=== PATIENT | male | born 1965 | race Caucasian/White ===

== ENCOUNTER 2021-06-06 10:46 | Outpatient (REF) | payer OTHER, SELFPAY ==
--- NOTE | ~2021-06-06 | XR_ITS ---
EXAMINATION: XR CHEST CLINICAL INFORMATION: Nonspecific abnormal finding of lung manzano. COMPARISON: Chest radiograph dated from 09/21/2006. TECHNIQUE: 2 views of the chest were obtained. FINDINGS: Normal appearance of the cardiomediastinal silhouette. Mild peribronchial cuffing centrally and in the lower lungs. No focal airspace opacities. No pleural effusions or pneumothorax. No acute osseous abnormalities. Thoracic spondylosis. XR/XR chest 2V IMPRESSION: Mild bronchial wall thickening with can be seen with small airways process such as asthma or atypical/viral infection.
[2021-06-06 13:45] LABS: MANUAL DIFF FLAG NO
[2021-06-06 13:48] LABS: Basophils Absolute Auto 0.1 X10*3/uL (0.0-0.2); Basophils Percent Auto 1.3 % (0-2); Eosinophils Absolute Auto 0.6 X10*3/uL (0.0-0.4); Eosinophils Percent Auto 8.4 % (0-4); Hematocrit 46.9 % (42.0-52.0); Hemoglobin 16.2 g/dl (14.0-18.0); Imm Gran Abs Auto 0.02 X10*3/uL (0.00-0.03); Imm Gran Pct Auto 0.3 % (0.0-0.4); Lymphocytes Absolute Auto 2.7 X10*3/uL (1.2-4.9); Lymphocytes Percent Auto 35.7 % (20-40); Mean Corpuscular HGB Conc 34.5 g/dl (31.0-36.0); Mean Corpuscular Hemoglobin 31.3 pg (27.0-33.0); Mean Corpuscular Volume 90.5 fL (80.0-98.0); Monocytes Absolute Auto 0.8 X10*3/uL (0.1-1.2); Monocytes Percent Auto 10.6 % (2-11); Neutrophils Absolute Auto 3.3 x10*3/uL (2.0-8.3); Neutrophils Percent Auto 43.7 % (45-73); Platelet Count 225 X10*3/uL (160-400); Red Blood Count 5.18 X10*6/uL (4.60-5.80); Red Cell Distribution Width 12.1 % (11.0-16.0); White Blood Count 7.5 X10*3/uL (4.8-10.8)
[2021-06-06 13:53] LABS: Appearance Urine CLEAR; Color Urine YELLOW; Glucose Urine UA NEG (NEG); Leukocyte Esterase Urine NEG (NEG); Nitrite Urine NEG (NEG); Specific Gravity - Urine 1.025 (1.005-1.025); UACC Culture Trigger NO; Urine Blood 1+ (NEG); Urine Ketones NEG (NEG); Urine Protein NEG (NEG-TRACE)
[2021-06-06 14:00] LABS: Estimated Average Glucose 117 mg/dL; Hemoglobin A1c % 5.7 %
[2021-06-06 14:08] LABS: Alanine Aminotransferase 47 U/L (0-40); Albumin Level 4.3 g/dL (3.5-5.0); Alkaline Phosphatase 54 U/L (39-117); Anion Gap 11 (12-20); Aspartate Amino Transferase 33 U/L (5-37); Bilirubin Total 1.8 mg/dL (0.0-1.0); Blood Urea Nitrogen 21 mg/dL (9-16); Calcium 9.4 mg/dL (8.4-10.2); Carbon Dioxide 31 mmol/L (22-29); Chloride 103 mmol/L (96-108); Cholesterol 138 mg/dL; Estimated Glomerular Filt Rate > 60; Glucose Fasting 107 mg/dL (60-99); HDL Cholesterol 45 mg/dL; LDL Cholesterol Calculated 71 mg/dl; Potassium 3.9 mmol/L (3.3-5.1); Sodium 141 mmol/L (135-145); Total Protein 7.4 g/dL (6.5-8.0); Triglycerides 110 mg/dL
[2021-06-06 14:20] LABS: Prostate Specific Antigen 1.19 ng/mL (<0.05-4.0); TSH reflex Free T4 2.62 uIU/mL (0.32-4.0); Vitamin D 25-OH Total 14.8 ng/mL (>30)
[2021-06-06 14:21] LABS: Mucus Urine TRACE /LPF; RBC Urine 0-2 /HPF (0); Squamous Epithelial Cell Urine TRACE /LPF; WBC Urine 0 /HPF (0-4)
== END 2021-06-06 10:47 | disposition home or self-care (01) ==
LOC: HO.HMGCX 10:46
PROVIDERS: PCP Internal Medicine; Visit Provider Internal Medicine
DX: Z00.00 Encounter for general adult medical examination without abnormal findings (principal); I10 Essential (primary) hypertension; E78.00 Pure hypercholesterolemia, unspecified; N40.0 Benign prostatic hyperplasia without lower urinary tract symptoms; E55.9 Vitamin D deficiency, unspecified; R73.01 Impaired fasting glucose; R91.8 Other nonspecific abnormal finding of lung field; Z12.5 Encounter for screening for malignant neoplasm of prostate
CPT/HCPCS: 36415; 71046; 80053; 80061; 81001; 81003; 82306; 83036; 84153; 84443; 85025

== ENCOUNTER → 2022-05-22 09:57 | Outpatient (BNVA) | payer OTHER, SELFPAY | PROVIDERS: PCP Internal Medicine; Visit Provider Nurse Practitioner Family | DX: N40.0 Benign prostatic hyperplasia without lower urinary tract symptoms (principal) | CPT/HCPCS: 51798 ==

== ENCOUNTER 2022-06-18 10:53 | Outpatient (REF) | payer OTHER, SELFPAY ==
--- NOTE | ~2022-06-18 | US_ITS ---
EXAMINATION: US PELVIS LIMITED (BLADDER) CLINICAL INFORMATION: Benign prostatic hyperplasia without lower urinary tract symptoms. COMPARISON: Ultrasound kidneys and bladder 10/09/2008. TECHNIQUE: Real-time imaging of the bladder. FINDINGS: BLADDER: Well distended and normal. Bilateral ureteral jets are demonstrated. Prevoid bladder volume is 176 mL. Postvoid bladder volume is 64.0 mL. Prostate volume 36.0 mL. US/US bladder IMPRESSION: Moderate postvoid residual volume. Bilateral ureteral jets seen. Mild prostate enlargement.
== END 2022-06-18 10:54 | disposition home or self-care (01) ==
LOC: HO.US 10:53
PROVIDERS: Visit Provider Nurse Practitioner Family
DX: N40.0 Benign prostatic hyperplasia without lower urinary tract symptoms (principal)
CPT/HCPCS: 76857

== ENCOUNTER 2022-07-04 10:53 | Outpatient (REF) | payer OTHER, SELFPAY ==
[2022-07-04 11:02] LABS: MANUAL DIFF FLAG NO
[2022-07-04 11:47] LABS: Basophils Percent Auto 0.6 % (0-2); Eosinophils Absolute Auto 0.2 X10*3/uL (0.0-0.4); Eosinophils Percent Auto 3.3 % (0-4); Hematocrit 44.8 % (42.0-52.0); Hemoglobin 15.5 g/dl (14.0-18.0); Imm Gran Abs Auto 0.01 X10*3/uL (0.00-0.03); Imm Gran Pct Auto 0.1 % (0.0-0.4); Lymphocytes Absolute Auto 2.8 X10*3/uL (1.2-4.9); Lymphocytes Percent Auto 41.9 % (20-40); Mean Corpuscular HGB Conc 34.6 g/dl (31.0-36.0); Mean Corpuscular Hemoglobin 30.6 pg (27.0-33.0); Mean Corpuscular Volume 88.5 fL (80.0-98.0); Mean Platelet Volume 10.2 fL (9.4-12.4); Monocytes Absolute Auto 0.7 X10*3/uL (0.1-1.2); Monocytes Percent Auto 10.4 % (2-11); Neutrophils Absolute Auto 2.9 x10*3/uL (2.0-8.3); Neutrophils Percent Auto 43.7 % (45-73); Platelet Count 203 X10*3/uL (160-400); Red Blood Count 5.06 X10*6/uL (4.60-5.80); Red Cell Distribution Width 11.7 % (11.0-16.0); White Blood Count 6.7 X10*3/uL (4.8-10.8)
[2022-07-04 11:51] LABS: Appearance Urine Clear; Color Urine Yellow; Glucose Urine UA Negative (Negative); Leukocyte Esterase Urine Negative (Negative); Nitrite Urine Negative (Negative); PH 5.5 (5.0-9.0); Specific Gravity - Urine 1.025 (1.005-1.025); Urine Blood Negative (Negative); Urine Ketones Negative (Negative); Urine Protein Negative (Neg-Trace)
[2022-07-04 11:53] LABS: Estimated Average Glucose 114 mg/dL; Hemoglobin A1c % 5.6 %
[2022-07-04 12:15] LABS: Alanine Aminotransferase 87 U/L (0-40); Albumin Level 4.4 g/dL (3.5-5.0); Alkaline Phosphatase 49 U/L (39-117); Anion Gap 12 (12-20); Aspartate Amino Transferase 43 U/L (5-37); Bilirubin Total 2.3 mg/dL (0.0-1.0); Blood Urea Nitrogen 18 mg/dL (9-16); Calcium 9.2 mg/dL (8.4-10.2); Carbon Dioxide 28 mmol/L (22-29); Chloride 106 mmol/L (96-108); Cholesterol 111 mg/dL; Estimated Glomerular Filt Rate > 60; Glucose Fasting 103 mg/dL (60-99); HDL Cholesterol 42 mg/dL; LDL Cholesterol Calculated 52 mg/dl; Potassium 3.6 mmol/L (3.3-5.1); Sodium 142 mmol/L (135-145); Total Protein 6.8 g/dL (6.5-8.0); Triglycerides 88 mg/dL
[2022-07-04 12:41] LABS: Prostate Specific Antigen 1.44 ng/mL (<0.05-4.0); TSH reflex Free T4 3.56 uIU/mL (0.32-4.0); Vitamin D 25-OH Total 21.4 ng/mL (>30)
== END 2022-07-04 10:54 | disposition home or self-care (01) ==
LOC: HO.LAB 10:53
PROVIDERS: PCP Internal Medicine; Visit Provider Internal Medicine
DX: I10 Essential (primary) hypertension (principal); N40.0 Benign prostatic hyperplasia without lower urinary tract symptoms; R35.0 Frequency of micturition; E55.9 Vitamin D deficiency, unspecified; E78.00 Pure hypercholesterolemia, unspecified; R73.01 Impaired fasting glucose; Z12.5 Encounter for screening for malignant neoplasm of prostate
CPT/HCPCS: 36415; 80053; 80061; 81003; 82306; 83036; 84153; 84443; 85025

== ENCOUNTER 2022-07-17 10:05 | Outpatient (REF) | payer OTHER, SELFPAY ==
--- NOTE | ~2022-07-17 | US_ITS ---
EXAMINATION: US ABDOMEN COMPLETE CLINICAL INFORMATION: Other specified abnormal findings of blood chemistry. COMPARISON: US pelvis limited (bladder) 06/18/2022. TECHNIQUE: Real-time imaging of the abdominal viscera. FINDINGS: PANCREAS: Normal. ABDOMINAL AORTA: The proximal, mid, and distal segments are normal in caliber. INFERIOR VENA CAVA: Visualized portions are normal. LIVER: The liver is normal in size. The liver contour is normal. Echogenicity of the liver is diffusely increased. No focal hepatic lesion. There is no intrahepatic biliary duct dilatation seen. GALLBLADDER: Surgically absent. COMMON BILE DUCT: Normal in caliber measuring 0.4 cm in diameter. RIGHT KIDNEY: The kidney measures 11.8 cm in maximum dimension. There is mild fullness of the right-sided collecting system versus small parapelvic cysts. No renal calculi. LEFT KIDNEY: The kidney measures 11.8 cm in maximum dimension. A few parapelvic cysts are noted within the left kidney. No definitive hydronephrosis. No renal calculi. SPLEEN: Normal. The spleen measures 11.5 cm in maximum dimension. FREE FLUID: None. US/US abdomen complete IMPRESSION: 1. Diffusely increased liver echogenicity. This is a nonspecific finding but most suggestive of hepatic steatosis. Correlation with liver enzymes recommended.. 2. Suspected parapelvic cysts of the left kidney with fullness of the right-sided collecting system versus parapelvic cysts. CT urogram would be required to definitively distinguish between parapelvic cysts and fullness of the collecting system
== END 2022-07-17 10:06 | disposition home or self-care (01) ==
LOC: HO.HMGCX 10:05
PROVIDERS: PCP Internal Medicine; Visit Provider Internal Medicine
DX: R79.89 Other specified abnormal findings of blood chemistry (principal); E80.6 Other disorders of bilirubin metabolism
CPT/HCPCS: 76700

== ENCOUNTER → 2022-08-07 10:48 | Outpatient (BNVA) | payer OTHER, SELFPAY | PROVIDERS: PCP Internal Medicine; Visit Provider Nurse Practitioner Family | DX: N52.9 Male erectile dysfunction, unspecified (principal); N40.1 Benign prostatic hyperplasia with lower urinary tract symptoms; N13.8 Other obstructive and reflux uropathy | CPT/HCPCS: 51798 ==

== ENCOUNTER 2023-09-04 11:06 | Outpatient (AMB) | payer OTHER, SELFPAY ==
--- NOTE | 2023-09-04 11:11 | MHC.PC.OV ---
Vital Signs 09/04/23 11:16 Height 5 ft 6 in Weight 195 lb 6 oz BMI 31.5 BP 110/74 Blood Pressure Location Lt brachial Position Sitting Pulse 66 Pulse Source Pulse Oximeter Pulse Oximetry (%) 98 Oxygen Delivery Method Room Air Intake Visit Reasons: follow up Registration Coordinator Required: No Accompanied by: Self / Same As Patient Allergies No Known Allergies Allergy (Verified 09/04/23 11:45) Medication List - Last Reconciled 09/04/23 by Robert Garrett MD alfuzosin ER 10 mg PO BEDTIME 90 days amlodipine 5 mg PO DAILY 90 days aspirin 81 mg PO DAILY atorvastatin 80 mg PO DAILY 90 days hydrochlorothiazide 25 mg PO DAILY 90 days lisinopril 40 mg PO DAILY 90 days metoprolol succinate ER 200 mg PO DAILY 90 days Tobacco use date assessed: 09/04/23 Dental Screening Dental Screen Date: 09/04/23 Did you have a dental visit in the last 12 months?: Yes Did you have a dental problem in the last 6 months where you did not have access to dental care?: No Was dental information given to patient?: Patient has dentist HPI follow up HPI Details Patient comes in today for his follow up visit - was last seen over a year ago in June 2022 Patient states that he has been experiencing increased pain over his lower back lately He also has a recurrent itchy rash on a couple of his fingers on the left hand recentlly - has been applying some apple cider vinegar over the rash but has noted only only some temporary relief of his symptoms He denies any headaches or dizziness Denies any chest pains, no SOB No nausea/vomiting, no abdominal pain No change in bowel habits noted Needs a couple of his Rx refilled He has not had any follow up labs done in over a year [facility] Medical History Impaired fasting glucose Obesity (BMI 30-39.9) Allergic rhinitis Erectile dysfunction Hemorrhoids Benign prostatic hyperplasia Pulmonary nodules Pure hypercholesterolemia Benign essential hypertension Premature ventricular contractions Hypertension Hyperlipidemia Coronary artery disease Surgical History History of coronary artery stent placement Family History Father Lung cancer Mother Hypertension Social History Housing: House Alcohol intake: current Alcohol intake frequency: a few times a week Alcohol type: beer Patient Tobacco Use Status: Former Tobacco user e-Cigarette/Vaping Use: Never Used Second Hand Smoke Exposure: Yes service: No Current occupational status: employed Cognitive needs: No Hearing needs: No Vision needs: Yes Questionnaire PHQ-9 Over the last 2 weeks, how often have you been bothered by any of the following problems? 1. Little interest or pleasure in doing things: not at all 2. Feeling down, depressed, or hopeless: not at all 3. Trouble falling or staying asleep, or sleeping too much: not at all 4. Feeling tired or having little energy: not at all 5. Poor appetite or overeating: not at all 6. Feeling bad about yourself - or that you are a failure or have let yourself or your family down: not at all 7. Trouble concentrating on things, such as reading the newspaper or watching television: not at all 8. Moving or speaking so slowly that other people could have noticed. Or the opposite - being so fidgety or restless that you have been moving around a lot more than usual: not at all 9. Thoughts that you would be better off or of hurting yourself in some way: not at all Total score: 0 Depression Screening Interpretation: Negative Depression Screening Done: Yes [id number] - PHQ-9 Billing: Yes Source: Developed by Drs. Gasper Rolon, Jany Gooden, Booker Santos and colleagues, with an educational zuleyka from [employer]. Thrive Questionnaire Date Thrive assessed: 09/04/23 I am a: Patient What is your living situation today?: I have a steady place to live Within the past 12 months, did the food you bought not last and you didn't have the money to get more?: Never true Within the past 12 months, did you worry whether your food would run out before you got money to buy more?: Never true Do you have trouble paying for medicines?: No Do you have trouble getting transportation to medical appointments?: No Do you have trouble paying your heating and electricity bill?: No Do you have trouble taking care of your child, family member or friend?: No Do you have trouble with day-to-day activities such as bathing, preparing meals, shopping, managing finances, etc.?: No Are you currently unemployed and looking for a job?: No Are you interested in more education?: No Please select the resources that you would like help with: None Currently or been in a relationship where the following occur: no concerns reported THRIVE Score: 0 AUDIT C Alcohol Use Questionnaire (AUDIT-C) 1. How often do you have a drink containing alcohol?: Monthly or less 2. How many drinks containing alcohol do you have on a typical day when you are drinking?: 1 or 2 3. How often do you have six or more drinks on one occasion?: Never Total Score: 1 Score Reviewed/Action Taken: Yes PAM-7 AMB Questionnaire PAM-7 Date PAM - 7 assessed: 09/04/23 Feeling nervous, anxious, or on edge: 0 = Not at all Not being able to stop or control worryin = Not at all Worrying too much about different things: 0 = Not at all Trouble relaxin = Not at all Being so restless that it is hard to sit still: 0 = Not at all Becoming easily annoyed or irritable: 0 = Not at all Feeling afraid as if something awful might happen: 0 = Not at all Total PAM-7 score (0-4 normal; 5-9 mild; 10-14 moderate; 15-21 severe): 0 Source: Developed by Drs. Gasper Rolon, Jany Gooden, Booker Santos and colleagues, with an educational zuleyka from [employer]. PAM-7 Assessment Billing PAM-7 Assessment Tool: PAM-7 Assessment 52599 Review of Systems Const Denies chills, Denies fatigue, Denies fever(s) and Denies headache(s) ENT Denies dysphagia, Denies dizziness, Denies otalgia, Denies headache(s), Denies neck pain, Denies odynophagia and Denies sore throat Card Denies chest pain, Denies palpitations and Denies dyspnea Resp Denies cough, Denies pain on inspiration, Denies dyspnea and Denies wheezing GI Denies abdominal pain, Denies constipation, Denies dysphagia, Denies heartburn, Denies diarrhea, Denies nausea, Denies odynophagia and Denies vomiting Denies dysuria, Denies nocturia and Denies urinary frequency Musc Reports back pain (over the lower back) and Denies neck pain Skin/Breast Reports rash (on the fingers, as per HPI) Neuro Denies dizziness and Denies headache(s) Endo Denies fatigue and Denies palpitations Aller/Immun Denies wheezing Physical exam (Primary Care) Vital Signs: Last Vital Signs Pulse 66 09/04/23 11:16 BP 110/74 09/04/23 11:16 Pulse Ox 98 09/04/23 11:16 Oxygen Delivery Method Room Air 09/04/23 11:16 BMI result Body Mass Index 31.5 Tobacco/Smoking Status: Tobacco use Status Tobacco use date assessed 09/04/23 09/04/23 11:15 Patient Tobacco Use Status Former Tobacco user 09/04/23 11:12 e-Cigarette/Vaping Use Never Used 09/04/23 11:12 PHQ-9: PHQ-9 Score PHQ-9: Total score 0 09/04/23 11:47 Depression Screening Interpretation: Negative Thrive Assessment: Date of Thrive Assessment Date Thrive assessed 09/04/23 09/04/23 11:15 Currently or been in a relationship where the following occur: no concerns reported Const General: no acute distress and alert HENMT Ears: TM's normal bilaterally and EAC's normal Throat: Yes posterior oropharynx normal and Yes tonsils normal (no TP congestion) Neck Neck: Yes no lymphadenopathy and Yes supple Thyroid: Thyroid normal Resp Auscultation: clear to auscultation bilaterally, no rales and no wheezes Cardio Rate: regular rate Rhythm: regular rhythm Heart sounds: no murmurs GI Palpation (GI): Soft to palpation and nontender Auscultation: normal bowel sounds General: Yes no CVA tenderness Back/Spine/Pelvis Back: no CVA tenderness Thoracic/Lumbar Spine: lumbar spinal tenderness Skin Rashes: rashes noted (recurrent itchy rash over a couple of fingers on the left hand) Extrem General: Yes no clubbing, cyanosis or edema Assessment and Plan Assessment & Plan (1) Coronary artery disease: Comment: S/P [place], with stenting of RCA and LCx in 05/2005 and stenting of proximal LAD in 03/2011 Code(s): I25.10 - Atherosclerotic heart disease of [place]nine [place] coronary artery without angina pectoris Qualifiers: Associated angina: without angina Coronary Disease-Associated Artery/Lesion type: [place] artery [place] vs. transplanted heart: [place] heart Qualified Code(s): I25.10 - Atherosclerotic heart disease of [place] coronary artery without angina pectoris Plan: Continue Aspirin 81 mg QD He used to see Dr. Tilley until he left for [place] a few years ago Follow up with [facility] as scheduled (2) Premature ventricular contractions: Code(s): I49.3 - Ventricular premature depolarization Plan: Patient reports that he's had no recurrence of symptoms lately Continue Metoprolol ER 200 mg QD (3) Benign essential hypertension: Code(s): I10 - Essential (primary) hypertension Plan: Reinforced low sodium diet - goal is systolic BP of at least 130 mm or less Continue Metoprolol ER 200 mg QD, Amlodipine 5 mg QD, Lisinopril 40 mg QD and HCTZ 25 mg QD He is reminded to continue monitoring his blood pressure regularly (4) Pure hypercholesterolemia: Code(s): E78.00 - Pure hypercholesterolemia, unspecified Plan: Reinforced low cholesterol diet Continue Atorvastatin 80 mg QD Will recheck his labs and fasting lipids AJNESSA for follow up - has not had any follow up labs done in over a year (5) Impaired fasting glucose: Code(s): R73.01 - Impaired fasting glucose Plan: His FBS was at 103 mg/dl and HgbA1c was normal at 5.6% when previously checked Reinforced low calorie/low carb diet (6) Pulmonary nodules: Code(s): R91.8 - Other nonspecific abnormal finding of lung field Plan: Chest CT last done on 02/20/2017 showed scattered parenchymal nodules throughout the right lung measuring up to 4 mm Per Fleischner Society 2017 guidelines, no follow up CT was done as risk of malignancy was deemed low with size of nodules < 6 mm Repeat chest x-rays done in May 2021 showed no evidence of aforementioned nodules - no further follow up testing is required if patient has had no other symptoms (7) Elevated LFTs: Code(s): R79.89 - Other specified abnormal findings of blood chemistry Plan: Abdominal US done last year in July 2022 revealed diffusely increased liver echogenicity which is a nonspecific finding but is most suggestive of hepatic steatosis He is again advised that losing weight should help get his LFTs back to normal (8) Hyperbilirubinemia: Code(s): E80.6 - Other disorders of bilirubin metabolism Plan: ? Gilbert's syndrome ? Abdominal US done in July 2022 revealed diffusely increased liver echogenicity but no other hepatic abnormalities noted. There are suspected parapelvic cysts of the left kidney with fullness of the right-sided collecting system versus parapelvic cysts fullness of the collecting system noted but these likely have no relation to his elevated bilirubin level He remains asymptomatic with regards to this (9) Benign prostatic hyperplasia: Code(s): N40.0 - Benign prostatic hyperplasia without lower urinary tract symptoms Qualifiers: Lower urinary tract symptom presence: unspecified whether lower urinary tract symptoms present Qualified Code(s): N40.0 - Benign prostatic hyperplasia without lower urinary tract symptoms Plan: Continue Alfusozin ER 10 mg QD - was started on this by urology last year He is also advised to bring to his urologist's attention at his upcoming appointment next week regarding the findings on his abdominal US last year about the suspected parapelvic cysts of the left kidney with fullness of the right-sided collecting system versus parapelvic cysts, and that I will leave it up to urology to decide if they would like to have patient get a CT urogram to help distinguish between parapelvic cysts and fullness of the collecting system Follow up with urology as scheduled (10) Erectile dysfunction: Code(s): N52.9 - Male erectile dysfunction, unspecified Qualifiers: Erectile dysfunction type: unspecified Qualified Code(s): N52.9 - Male erectile dysfunction, unspecified Plan: Continue Tadalafil 10 mg QD PRN (11) Obesity (BMI 30-39.9): Code(s): E66.9 - Obesity, unspecified Plan: Reinforced diet/exercise as tolerated/lose weight Plan Follow up in 6 months Orders: Orders Comprehensive [place]. Panel Fast 09/04/23 E78.00 - Pure hypercholesterolemia, unspecified UA CC w/rflx Micro + Cult 09/04/23 R30.0 - Dysuria Vitamin D 25-OH Total 09/04/23 E55.9 - Vitamin D deficiency, unspecified Prostate Specific Antigen 09/04/23 N40.0 - Benign prostatic hyperplasia without lower urinary tract symptoms Complete Blood Count Auto Diff 09/04/23 D64.9 - Anemia, unspecified Lipid Panel 09/04/23 E78.00 - Pure hypercholesterolemia, unspecified TSH reflex Free T4 09/04/23 E78.00 - Pure hypercholesterolemia, unspecified Medications: Changed From aspirin 81 mg PO DAILY To aspirin 81 mg PO DAILY 90 days 90 tabs 3RF Refilled alfuzosin ER Take before bedtime 10 mg PO BEDTIME 90 days 90 tabs 3RF N32.0 - Bladder-neck obstruction, N40.1 - Benign prostatic hyperplasia with lower urinary tract symptoms, R33.9 - Retention of urine, unspecified, R35.1 - Nocturia, R39.12 - Poor urinary stream Coding Level of Care Code Est Pt Level 4 (33927) Diagnoses Coronary artery disease involving [place]-nine [place] coronary artery of [place] heart without angina pectoris I25.10 Associated angina: without angina Coronary Disease-Associated Artery/Lesion type: [place] artery [place] vs. transplanted heart: [place] heart Premature ventricular contractions I49.3 Benign essential hypertension I10 Pure hypercholesterolemia E78.00 Impaired fasting glucose R73.01 Pulmonary nodules R91.8 Elevated LFTs R79.89 Hyperbilirubinemia E80.6 Benign prostatic hyperplasia, unspecified whether lower urinary tract symptoms present N40.0 Lower urinary tract symptom presence: unspecified whether lower urinary tract symptoms present Erectile dysfunction, unspecified erectile dysfunction type N52.9 Erectile dysfunction type: unspecified Obesity (BMI 30-39.9) E66.9 Additional Codes PAM-7 Assessment Billing - PAM-7 Assessment Tool: PAM-7 Assessment 14015 ([id number])
[2023-09-04 11:16] VITALS: BP 110/74; PULSE 66; O2SAT 98; BMI 31.5
== END 2023-09-04 12:03 | disposition home or self-care (01) ==
PROVIDERS: PCP Internal Medicine; Visit Provider Internal Medicine
DX: I25.10 Atherosclerotic heart disease of native coronary artery without angina pectoris (principal); I49.3 Ventricular premature depolarization; E66.9 Obesity, unspecified; Z68.30 Body mass index [BMI] 30.0-30.9, adult; I10 Essential (primary) hypertension; E78.00 Pure hypercholesterolemia, unspecified; R73.01 Impaired fasting glucose; R91.8 Other nonspecific abnormal finding of lung field; R79.89 Other specified abnormal findings of blood chemistry; E80.6 Other disorders of bilirubin metabolism; N40.0 Benign prostatic hyperplasia without lower urinary tract symptoms; N52.9 Male erectile dysfunction, unspecified
CPT/HCPCS: 99214

== ENCOUNTER 2023-09-09 09:40 | Outpatient (REF) | payer OTHER, SELFPAY ==
[2023-09-09 10:54] LABS: Eosinophils Percent Auto 4.2 % (0-4); Hematocrit 45.7 % (42.0-52.0); Imm Gran Pct Auto 0.1 % (0.0-0.4); Lymphocytes Percent Auto 39.6 % (20-40); MANUAL DIFF FLAG NO; Mean Corpuscular Volume 89.8 fL (80.0-98.0); Neutrophils Absolute Auto 3.1 x10*3/uL (2.0-8.3); Neutrophils Percent Auto 45.1 % (45-73); Red Blood Count 5.09 X10*6/uL (4.60-5.80); White Blood Count 6.9 X10*3/uL (4.8-10.8)
[2023-09-09 11:45] LABS: Alanine Aminotransferase 66 U/L (0-40); Albumin Level 4.6 g/dL (3.5-5.0); Alkaline Phosphatase 48 U/L (39-117); Anion Gap 14 (12-20); Aspartate Amino Transferase 39 U/L (5-37); Bilirubin Total 1.5 mg/dL (0.0-1.0); Blood Urea Nitrogen 27 mg/dL (9-16); Calcium 9.9 mg/dL (8.4-10.2); Carbon Dioxide 29 mmol/L (22-29); Chloride 101 mmol/L (96-108); Cholesterol 125 mg/dL (<200); Estimated Glomerular Filt Rate > 60; Glucose Fasting 105 mg/dL (60-99); HDL Cholesterol 49 mg/dL (>40); LDL Cholesterol Calculated 63 mg/dL (<100); Potassium 3.6 mmol/L (3.3-5.1); Sodium 140 mmol/L (135-145); Total Protein 7.6 g/dL (6.5-8.0); Triglycerides 67 mg/dL (<150)
[2023-09-09 11:51] LABS: Prostate Specific Antigen 1.27 ng/mL (<0.05-4.0)
[2023-09-09 12:15] LABS: Appearance Urine Clear; Color Urine Yellow; Glucose Urine UA Negative (Negative); Leukocyte Esterase Urine Negative (Negative); Nitrite Urine Negative (Negative); PH 5.5 (5.0-9.0); Urine Blood Negative (Negative); Urine Ketones Negative (Negative); Urine Protein Negative (Neg-Trace)
[2023-09-09 13:03] LABS: Free T4 (Free Thyroxine) 0.85 ng/dL (0.71-1.85)
== END 2023-09-09 09:41 | disposition home or self-care (01) ==
LOC: HO.LAB 09:40
PROVIDERS: PCP Internal Medicine; Visit Provider Internal Medicine
DX: E78.00 Pure hypercholesterolemia, unspecified (principal); I10 Essential (primary) hypertension; R30.0 Dysuria; E55.9 Vitamin D deficiency, unspecified; N40.0 Benign prostatic hyperplasia without lower urinary tract symptoms; Z12.5 Encounter for screening for malignant neoplasm of prostate
CPT/HCPCS: 36415; 80053; 80061; 81003; 82306; 84153; 84439; 84443; 85025

== ENCOUNTER 2023-09-11 13:29 | Outpatient (REF) | payer OTHER, SELFPAY ==
[2023-09-11 17:04] LABS: Urine Cytology See Pathology rpt
== END 2023-09-11 13:30 | disposition home or self-care (01) ==
LOC: HO.LNP 13:29
PROVIDERS: Visit Provider Nurse Practitioner Family
DX: N40.1 Benign prostatic hyperplasia with lower urinary tract symptoms (principal); N13.8 Other obstructive and reflux uropathy; N28.1 Cyst of kidney, acquired; R35.1 Nocturia; E11.69 Type 2 diabetes mellitus with other specified complication
CPT/HCPCS: 51798; 81003; 88112

== ENCOUNTER 2023-09-11 13:29 | Outpatient (AMB) | payer OTHER, SELFPAY ==
--- NOTE | 2023-09-11 13:34 | A.OFFVIS_ITS ---
Intake Visit Reasons: 1y/PVR Intake Note: Patient is present for follow up BPH Urology Medications: alfuzosin Blood Thinner: aspirin PVR: 50ml's Supervisor General Required: No Accompanied by: Self / Same As Patient Allergies No Known Allergies Allergy (Verified 09/11/23 13:51) Medication List - Last Reconciled 09/11/23 by COTY HallP- alfuzosin ER 10 mg PO BEDTIME 90 days amlodipine 5 mg PO DAILY 90 days aspirin 81 mg PO DAILY 90 days atorvastatin 80 mg PO DAILY 90 days hydrochlorothiazide 25 mg PO DAILY 90 days lisinopril 40 mg PO DAILY 90 days metoprolol succinate ER 200 mg PO DAILY 90 days triamcinolone acetonide 0.5% 1 appl topical BID PRN HPI Comments Details: Beata Brown is a pleasant 57-year-old male patient of Dr. Garrett. He has a past medical history of obesity, allergic rhinitis, ED, hemorrhoids, BPH, pulmonary nodules, trigger finger, hypercholesteremia, hypertension, coronary artery disease status post [place] with stenting of RCA and LCx. He presents to the office today for follow-up of his BPH and ED. In discussion with the patient today reports to be doing and feeling well. He reports having started a low carb diet and has lost weight and contiues to lose weight. He reports noting decreased inflammation throughout his body since starting low carb diet. He discusses how he use to suffer from trigger finger and feels this has since resolved. When asked he does continue to report nocturia up to 4 times per night however works 2nd shift and endorses to drinking fluids up to/prior to bed. He does report compliance with alfuzosin 10 mg daily and does feel this has been helpful. He reports he has not utilized p.r.n. Viagra as he is not currently sexually active. He reports having followed up with his PCP and recommendations were made for Urology follow-up of previous abdominal ultrasound noting suspected peripelvic cysts of the left kidney with fullness of the right-sided collecting system versus peripelvic cysts. Recommendations for CT urogram are suggested to distinguish between peripelvic cysts and fullness of the collecting system. He otherwise denies incontinence, hematuria, dysuria, foul smelling urine, flank pain, fever, and or chills. In office urinalysis results reviewed with the patient today. PVR 50 mL. PSAs are as noted and trended below: 02/25 1.5, 06/01 1.2, 07/03 1.4, 10/01 1.3 [facility] Medical History (Updated 09/12/23 @ 22:06 [facility] Impaired fasting glucose Obesity (BMI 30-39.9) Allergic rhinitis Hemorrhoids Benign prostatic hyperplasia Pulmonary nodules Pure hypercholesterolemia Benign essential hypertension Premature ventricular contractions Hypertension Hyperlipidemia Coronary artery disease Surgical History History of coronary artery stent placement Family History Father Lung cancer Mother Hypertension Social History Housing: House Alcohol intake: current Alcohol intake frequency: a few times a week Alcohol type: beer Patient Tobacco Use Status: Former Tobacco user e-Cigarette/Vaping Use: Never Used Second Hand Smoke Exposure: Yes service: No Current occupational status: employed Cognitive needs: No Hearing needs: No Vision needs: Yes Review of Systems Const Reports no additional complaints Eyes Reports no additional complaints ENT Reports no additional complaints Card Reports as per HPI Resp Reports as per [facility] GI Reports as per HPI Reports as per [facility] Musc Reports as per HPI Neuro Reports no additional complaints Psych Reports no additional complaints Endo Reports as per [facility] Neftaly/Lymph Reports no additional complaints Aller/Immun Reports as per HPI Physical Exam Const General: cooperative, healthy appearing, comfortable, no acute distress, well developed, alert and awake Nutritional Appearance: overweight Orientation/consciousness: patient oriented x3 Limitations: no limitations HEENT Head: Yes normal to inspection, Yes normocephalic and Yes atraumatic Ears: hearing grossly normal bilaterally Eyes General: appearance normal, both eyes and all related structures Neck Neck: Yes normal visual inspection Chest Chest palpation & inspection: normal inspection of the chest Resp Effort & Inspection: normal respiratory effort and able to speak in complete sentences Cardio Rate: regular rate General: Yes no CVA tenderness Back/Spine/Pelvis Back: no CVA tenderness Cervical Spine: normal cervical lordosis Neuro General: patient oriented x3 Psych Appearance: grossly normal and well kempt Mental Status: mental status grossly normal Speech and movement: Normal speech and movement present Affect: normal affect Attitude: cooperative Thought process: Normal thought process present Thought content: Normal thought content present Insight: Fair insight present (Psych) Judgement: Fair judgement present (Psych) Office Procedures Post Void Residual Post Residual Void Post Void Residual (PVR): 50 [id number] Void Residual by ultrasound Results AMB Urinalysis, Automated UA Leukoctes 0 Anatoliy/uL Last Edit by Ashley Lee on 09/11/23 13:52 UA Nitrite Last Edit by Skycheckinmichele [employer] on 09/11/23 13:52 UA Urobilinogen 0.2 mg/dL Last Edit by [employer] on 09/11/23 13:52 UA Protein 15 mg/dL Last Edit by [employer] on 09/11/23 13:52 UA pH 5.5 Last Edit by [employer] on 09/11/23 13:52 UA Blood 25 Daniel/uL Last Edit by [employer] on 09/11/23 13:52 UA Specific [place] 1.020 Last Edit by [employer] on 09/11/23 13:52 UA Ketone Last Edit by [employer] on 09/11/23 13:52 UA Bilirubin 0 mg/dL Last Edit by [employer]ir[employer] on 09/11/23 13:52 UA Glucose 0 mg/dL Last Edit by [employer] on 09/11/23 13:52 Results Reviewed Results Reviewed: Laboratory Last Values Urine pH (Auto) 5.5 09/11/23 13:36 Specific [place] (Auto) 1.020 09/11/23 13:36 Urine Protein (Auto) 15 mg/dL 09/11/23 13:36 Glucose (UA)(Auto) 0 mg/dL 09/11/23 13:36 Urine Blood (Auto) 25 Daniel/uL 09/11/23 13:36 Urine Bilirubin (Auto) 0 mg/dL 09/11/23 13:36 Urine Urobilinogen (Auto) 0.2 mg/dL 09/11/23 13:36 Leukocyte Esterase (Auto) 0 Anatoliy/uL 09/11/23 13:36 Assessment & Plan Assessment & Plan (1) Parapelvic renal cyst: Code(s): N28.1 - Cyst of kidney, acquired Category: Medical (2) BPH with obstruction/lower urinary tract symptoms: Code(s): N40.1 - Benign prostatic hyperplasia with lower urinary tract symptoms; N13.8 - Other obstructive and reflux uropathy Category: Medical (3) Nocturia: Code(s): R35.1 - Nocturia Category: Medical (4) Erectile dysfunction associated with type 2 diabetes mellitus: Code(s): E11.69 - Type 2 diabetes mellitus with other specified complication; N52.1 - Erectile dysfunction due to diseases classified elsewhere Category: Medical Plan In office urinalysis results reviewed with the patient today. PVR 50 mL. Recent PSA results reviewed with the patient today; as noted above. Abdominal ultrasound results reviewed with the patient today; as noted above. Will obtain CT urogram for further assessment evaluation. BUN and creatinine ordered for imaging. Discussed lifestyle modifications to assist with nocturia verses changing medication regimen verses in office cystoscopy for further assessment koby luation. Continue alfuzosin 10 mg at bedtime as discussed and prescribed. Discussed, educated, and stressed the importance of managing diabetes for improvement in lower urinary tract symptoms as well as overall health and well- being. Patient does not currently find ED bothersome as he is not sexually active. Follow-up in 1-2 months with imaging and labs to be completed prior; or sooner with any issues, concerns, and or questions. Orders: Orders Blood Urea Nitrogen Today N28.1 - Cyst of kidney, acquired Creatinine Today N28.1 - Cyst of kidney, acquired CT urogram Today N28.1 - Cyst of kidney, acquired AMB Urinalysis Automated 09/11/23 Z13.9 - Encounter for screening, unspecified AMB Post Void Residual by ultrasound 09/11/23 N13.8 - Other obstructive and reflux uropathy, N40.1 - Benign prostatic hyperplasia with lower urinary tract symptoms Urine Cytology 09/11/23 N13.8 - Other obstructive and reflux uropathy, N40.1 - Benign prostatic hyperplasia with lower urinary tract symptoms Patient Instructions: The patient had an opportunity to ask questions regarding the treatment plan. All questions were answered. Physical exam, labs, and imaging were discussed and reviewed in detail. As well as risks, benefits, and discussion of treatment choices. No major barriers to understanding were identified. The patient expressed understanding and agreement with the above treatment plan. The patient was made aware they should contact our office by phone for worsening of their current condition, the appearance of new symptoms, or with any questions or concerns. Compliance is encouraged with any medications and follow up testing that is ordered. It is a privilege to be allowed the opportunity to participate in? your urological care.? Again, if you have any questions or concerns If you have any questions or concerns please do not hesitate to contact me. The office is [phone]. This note is constructed using voice recognition software. While every effort has been made to ensure accuracy air gun operator errors may have been included. Yours sincerely, BILL Hall Coding Level of Care Code Est Pt Level 4 (43916) Diagnoses Parapelvic renal cyst N28.1 BPH with obstruction/lower urinary tract symptoms N40.1; N13.8 Nocturia R35.1 Erectile dysfunction associated with type 2 diabetes mellitus E11.69; N52.1 CPT Codes Post Residual Void - PVR CPT Code: 51830-[id number] Void Residual by ultrasound ([id number]) Time Spent (min) 35
== END 2023-09-11 14:18 | disposition home or self-care (01) ==
PROVIDERS: PCP Internal Medicine; Visit Provider Nurse Practitioner Family
DX: N28.1 Cyst of kidney, acquired (principal); N40.1 Benign prostatic hyperplasia with lower urinary tract symptoms; N13.8 Other obstructive and reflux uropathy; R35.1 Nocturia; E11.69 Type 2 diabetes mellitus with other specified complication; N52.1 Erectile dysfunction due to diseases classified elsewhere
CPT/HCPCS: 99214

== ENCOUNTER 2023-10-28 09:13 | Outpatient (REF) | payer OTHER, SELFPAY ==
[2023-10-28 11:07] LABS: Blood Urea Nitrogen 20 mg/dL (9-16); Estimated Glomerular Filt Rate > 60
== END 2023-10-28 09:14 | disposition home or self-care (01) ==
LOC: HO.LAB 09:13
PROVIDERS: PCP Internal Medicine; Visit Provider Nurse Practitioner Family
DX: N28.1 Cyst of kidney, acquired (principal)
CPT/HCPCS: 36415; 82565; 84520

== ENCOUNTER 2023-11-02 15:14 | Outpatient (REF) | payer OTHER, SELFPAY ==
--- NOTE | ~2023-11-02 | CT_ITS ---
EXAMINATION: CT ABDOMEN AND PELVIS WITHOUT AND WITH CONTRAST CLINICAL INFORMATION: Parapelvic cysts versus hydronephrosis. COMPARISON: Ultrasound abdomen 07/17/2022: Suspected parapelvic cysts of the left kidney with fullness of the right-sided collecting system versus parapelvic cysts. CT urogram would be required to definitively distinguish between parapelvic cysts and fullness of the collecting system. TECHNIQUE: Noncontrast CT of the abdomen and pelvis is performed followed by split bolus contrast-enhanced images using 85 mL Omnipaque 350 contrast.? Postcontrast imaging is performed during the combined nephrogram and excretion phase. Sagittal and coronal reformatted images were obtained on the technologist's workstation for both the precontrast and postcontrast phases. This CT examination was performed using dose optimization techniques as appropriate, variously including the following: *Automated exposure control *Adjustment of mA and/or kV according to patient size (this includes techniques or standardized protocols for targeted exams where dose is matched to indication/reason for exam; i.e. extremities or head) *Use of iterative reconstruction technique DLP: 788 mGy-cm FINDINGS: LUNG BASES: The visualized lung bases are unremarkable. LIVER, GALLBLADDER, AND BILIARY TREE: The liver is normal in size, shape, and attenuation. No focal hepatic lesion or biliary ductal dilatation is present. The gallbladder is not seen. PANCREAS: Unremarkable. SPLEEN: Unremarkable. ADRENAL GLANDS: Unremarkable. KIDNEYS, URETERS AND BLADDER: The kidneys are normal in size, shape, and attenuation. Multiple benign bilateral parapelvic Bosniak class I renal cysts are noted which account for the findings seen on the recent ultrasound. These require no additional imaging or follow-up. No solid renal masses are seen. The renal collecting systems appear normal aside from mass effect from the parapelvic cysts. No mucosal abnormalities or filling defects are seen. The ureters are nondilated. The bladder is unremarkable aside from an impression at its base by an enlarged prostate. No hydronephrosis, hydroureter, or calculi seen. No perinephric stranding. GASTROINTESTINAL TRACT: The small and large bowel are unremarkable aside from a few scattered colonic diverticula without diverticulitis. The appendix is not seen with certainty but there is no evidence of appendicitis. ABDOMINAL WALL: No significant hernia is appreciated. Tiny periumbilical hernia seen containing only fat. LYMPH NODES: Normal. VASCULAR: Calcific atherosclerotic changes are present in the aorta and iliofemoral vessels. There is no evidence of an abdominal aortic aneurysm. PELVIC VISCERA: Mild BPH. Seminal vesicles appear normal. OSSEUS STRUCTURES: Degenerative changes present at L5-S1. There is lumbarization of S1. No bony destructive lesions. CT/CT urogram IMPRESSION: 1. Benign bilateral parapelvic renal cysts which account for the findings seen on the recent ultrasound. These require no additional imaging or follow-up. There is no hydronephrosis. 2. Incidental note made of mild BPH and colonic diverticulosis.
[2023-11-02] MEDS: iohexoL 350 MG/ML 75 ML INFUS..BTL 85 ML IV (16:12)
== END 2023-11-02 15:15 | disposition home or self-care (01) ==
LOC: HO.CT 15:14
PROVIDERS: PCP Internal Medicine; Visit Provider Nurse Practitioner Family
DX: N28.1 Cyst of kidney, acquired (principal)
CPT/HCPCS: 74178; Q9967

== ENCOUNTER 2023-11-18 10:42 | Outpatient (AMB) | payer OTHER, SELFPAY ==
--- NOTE | 2023-11-18 10:43 | A.OFFVIS_ITS ---
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 Garrett. He has a past medical history of obesity, allergic rhinitis, ED, hemorrhoids, BPH, pulmonary nodules, trigger finger, hypercholesteremia, hypertension, coronary artery disease status post [place] with stenting of RCA and LCx. He presents to the office today for follow-up of his BPH and ED. In discussion with the patient today reports to be doing and feeling well. Of note, patient was seen approximately 2 months ago at which time a CT urogram was ordered for further assessment evaluation as most recent abdominal ultrasound noting suspected peripelvic cysts of the left kidney with fullness of the right-sided collecting system versus peripelvic cysts. Recommendations for CT urogram are suggested to distinguish between peripelvic cysts and fullness of the collecting system. These results were reviewed with the patient today. Benign bilateral parapelvic renal cysts which account for the findings seen on the recent ultrasound. These require no additional imaging or follow-up. There is no hydronephrosis. Incidental note made of mild BPH and colonic diverticulosis. He reports noting improvement in lower urinary tract symptoms with alfuzosin 10 mg daily. He oth erwise denies incontinence, hematuria, dysuria, foul smelling urine, flank pain, fever, and or chills. In office urinalysis results reviewed with the patient today. PVR 0 mL. PSAs are as noted and trended below: 02/25 1.5, 06/01 1.2, 07/03 1.4, 10/01 1.3 PFSH Medical History Impaired fasting glucose Obesity (BMI 30-39.9) Allergic rhinitis Hemorrhoids Benign prostatic hyperplasia Pulmonary nodules Pure hypercholesterolemia Benign essential hypertension Premature ventricular contractions Hypertension Hyperlipidemia Coronary artery disease Surgical History History of coronary artery stent placement Family History Father Lung cancer Mother Hypertension Social History Housing: House Alcohol intake: current Alcohol intake frequency: a few times a week Alcohol type: beer Patient Tobacco Use Status: Former Tobacco user e-Cigarette/Vaping Use: Never Used Second Hand Smoke Exposure: Yes service: No Current occupational status: employed Cognitive needs: No Hearing needs: No Vision needs: Yes Review of Systems Const Reports no additional complaints Eyes Reports no additional complaints ENT Reports no additional complaints Card Reports as per HPI Resp Reports as per HPI GI Reports as per HPI Reports as per HPI Musc Reports as per HPI Neuro Reports no additional complaints Psych Reports no additional complaints Endo Reports as per HPI Neftaly/Lymph Reports no additional complaints Aller/Immun Reports as per HPI Physical Exam Const General: cooperative, healthy appearing, comfortable, no acute distress, well developed, alert and awake Nutritional Appearance: overweight Orientation/consciousness: patient oriented x3 Limitations: no limitations HEENT Head: Yes normal to inspection, Yes normocephalic and Yes atraumatic Ears: hearing grossly normal bilaterally Eyes General: appearance normal, both eyes and all related structures Neck Neck: Yes normal visual inspection Chest Chest palpation & inspection: normal inspection of the chest Resp Effort & Inspection: normal respiratory effort and able to speak in complete sentences Cardio Rate: regular rate General: Yes no CVA tenderness Back/Spine/Pelvis Back: no CVA tenderness Cervical Spine: normal cervical lordosis Neuro General: patient oriented x3 Psych Appearance: grossly normal and well kempt Mental Status: mental status grossly normal Speech and movement: Normal speech and movement present Affect: normal affect Attitude: cooperative Thought process: Normal thought process present Thought content: Normal thought content present Insight: Fair insight present (Psych) Judgement: Fair judgement present (Psych) Results AMB Urinalysis, Automated UA Leukoctes 0 Anatloiy/uL Last Edit by MELLISA Mina on 11/18/23 10:52 UA Nitrite Negative Last Edit by Jeanine Jose [facility] on 11/18/23 10:52 UA Urobilinogen 0.2 mg/dL Last Edit by Jeanine Jose [facility] on 11/18/23 10:5 2 UA Protein 0 mg/dL Last Edit by Jeanine Jose [facility] on 11/18/23 10:52 UA pH 5.0 Last Edit by Jeanine Jose [facility] on 11/18/23 10:52 UA Blood 25 Daniel/uL Last Edit by Jeanine Jose [facility] on 11/18/23 10:52 UA Specific [place] 1.025 Last Edit by Jeanine Jose [facility] on 11/18/23 10: 52 UA Ketone Positive Last Edit by Jeanine Jose [facility] on 11/18/23 10:52 UA Bilirubin 0 mg/dL Last Edit by Jeanine Jose [facility] on 11/18/23 10:52 UA Glucose 0 mg/dL Last Edit by Jeanine Jose [facility] on 11/18/23 10:52 Results Reviewed Results Reviewed: Laboratory Last Values Urine pH (Auto) 5.0 11/18/23 10:52 Specific [place] (Auto) 1.025 11/18/23 10:52 Urine Protein (Auto) 0 mg/dL 11/18/23 10:52 Glucose (UA)(Auto) 0 mg/dL 11/18/23 10:52 Urine Ketones (Auto) Positive 11/18/23 10:52 Urine Blood (Auto) 25 Daniel/uL 11/18/23 10:52 Urine Nitrite (Auto) Negative 11/18/23 10:52 Urine Bilirubin (Auto) 0 mg/dL 11/18/23 10:52 Urine Urobilinogen (Auto) 0.2 mg/dL 11/18/23 10:52 Leukocyte Esterase (Auto) 0 Anatoliy/uL 11/18/23 10:52 Date of Service: 11/02/23 EXAMINATION: CT ABDOMEN AND PELVIS WITHOUT AND WITH CONTRAST FINDINGS: LUNG BASES: The visualized lung bases are unremarkable. LIVER, GALLBLADDER, AND BILIARY TREE: The liver is normal in size, shape, and attenuation. No focal hepatic lesion or biliary ductal dilatation is present. The gallbladder is not seen. PANCREAS: Unremarkable. SPLEEN: Unremarkable. ADRENAL GLANDS: Unremarkable. KIDNEYS, URETERS AND BLADDER: The kidneys are normal in size, shape, and attenuation. Multiple benign bilateral parapelvic Bosniak class I renal cysts are noted which account for the findings seen on the recent ultrasound. These require no additional imaging or follow-up. No solid renal masses are seen. The renal collecting systems appear normal aside from mass effect from the parapelvic cysts. No mucosal abnormalities or filling defects are seen. The ureters are nondilated. The bladder is unremarkable aside from an impression at its base by an enlarged prostate. No hydronephrosis, hydroureter, or calculi seen. No perinephric stranding. GASTROINTESTINAL TRACT: The small and large bowel are unremarkable aside from a few scattered colonic diverticula without diverticulitis. The appendix is not seen with certainty but there is no evidence of appendicitis. ABDOMINAL WALL: No significant hernia is appreciated. Tiny periumbilical hernia seen containing only fat. LYMPH NODES: Normal. VASCULAR: Calcific atherosclerotic changes are present in the aorta and iliofemoral vessels. There is no evidence of an abdominal aortic aneurysm. PELVIC VISCERA: Mild BPH. Seminal vesicles appear normal. OSSEUS STRUCTURES: Degenerative changes present at L5-S1. There is lumbarization of S1. No bony destructive lesions. IMPRESSION: 1. Benign bilateral parapelvic renal cysts which account for the findings seen on the recent ultrasound. These require no additional imaging or follow-up. There is no hydronephrosis. 2. Incidental note made of mild BPH and colonic diverticulosis. Assessment & Plan Assessment & Plan (1) Parapelvic renal cyst: Code(s): N28.1 - Cyst of kidney, acquired Category: Medical (2) BPH with obstruction/lower urinary tract symptoms: Code(s): N40.1 - Benign prostatic hyperplasia with lower urinary tract symptoms; N13.8 - Other obstructive and reflux uropathy Category: Medical (3) Nocturia: Code(s): R35.1 - Nocturia Category: Medical (4) Erectile dysfunction associated with type 2 diabetes mellitus: Code(s): E11.69 - Type 2 diabetes mellitus with other specified complication; N52.1 - Erectile dysfunction due to diseases classified elsewhere Category: Medical Plan In office urinalysis results reviewed with the patient today. PVR [address] urogram results reviewed with the patient today; as noted above. Patient reports be happy with current voiding parameters on 10 mg of alfuzosin daily; will continue. Discussed possible near future in office cystoscopy if symptoms arise and or worsen. Discussed, educated, and stressed the importance of managing diabetes for improvement in lower urinary tract symptoms as well as overall health and well- being. Patient does not currently find ED bothersome as he is not sexually active. Follow-up in 6 months with PVR or sooner with any issues, concerns, and or questions. Orders: Orders AMB Urinalysis Automated Today Z13.9 - Encounter for screening, unspecified Urine Cytology Today N39.0 - Urinary tract infection, site not specified Patient Instructions: The patient had an opportunity to ask questions regarding the treatment plan. All questions were answered. Physical exam, labs, and imaging were discussed and reviewed in detail. As well as risks, benefits, and discussion of treatment choices. No major barriers to understanding were identified. The patient expressed understanding and agreement with the above treatment plan. The patient was made aware they should contact our office by phone for worsening of their current condition, the appearance of new symptoms, or with any questions or concerns. Compliance is encouraged with any medications and follow up testing that is ordered. It is a privilege to be allowed the opportunity to participate in? your urological care.? Again, if you have any questions or concerns If you have any questions or concerns please do not hesitate to contact me. The office is [phone]. This note is constructed using voice recognition software. While every effort has been made to ensure accuracy repair department manager errors may have been included. Yours sincerely, BILL Hall Coding Level of Care Code Est Pt Level 3 (59206) Diagnoses Parapelvic renal cyst N28.1 BPH with obstruction/lower urinary tract symptoms N40.1; N13.8 Nocturia R35.1 Erectile dysfunction associated with type 2 diabetes mellitus E11.69; N52.1
== END 2023-11-18 11:08 | disposition home or self-care (01) ==
PROVIDERS: PCP Internal Medicine; Visit Provider Nurse Practitioner Family
DX: N28.1 Cyst of kidney, acquired (principal); N40.1 Benign prostatic hyperplasia with lower urinary tract symptoms; N13.8 Other obstructive and reflux uropathy; R35.1 Nocturia; E11.69 Type 2 diabetes mellitus with other specified complication; N52.1 Erectile dysfunction due to diseases classified elsewhere; Z13.9 Encounter for screening, unspecified
CPT/HCPCS: 99213

== ENCOUNTER 2023-11-18 10:42 | Outpatient (REF) | payer OTHER, SELFPAY ==
[2023-11-18 18:03] LABS: Urine Cytology See Pathology rpt
== END 2023-11-18 10:43 | disposition home or self-care (01) ==
LOC: HO.LAB 10:42
PROVIDERS: PCP Internal Medicine; Visit Provider Nurse Practitioner Family
DX: N39.0 Urinary tract infection, site not specified (principal); N28.1 Cyst of kidney, acquired; N40.1 Benign prostatic hyperplasia with lower urinary tract symptoms; N13.8 Other obstructive and reflux uropathy; R35.1 Nocturia
CPT/HCPCS: 81003; 88112

== ENCOUNTER 2024-03-18 10:31 | Outpatient (AMB) | payer OTHER, SELFPAY ==
--- NOTE | 2024-03-18 10:36 | MHC.PC.OV ---
Vital Signs 03/18/24 10:37 Height 5 ft 6 in Weight 194 lb 8 oz BMI 31.4 BP 100/80 Blood Pressure Location Lt brachial Position Sitting Pulse 59 Pulse Source Pulse Oximeter Pulse Oximetry (%) 98 Oxygen Delivery Method Room Air Intake Visit Reasons: 6mof\u Starting Gate Driver Required: No Accompanied by: Self / Same As Patient Allergies No Known Allergies Allergy (Verified 03/20/24 16:10) Medication List - Last Reconciled 03/20/24 by Robert Garrett MD alfuzosin ER 10 mg PO BEDTIME 90 days amlodipine 5 mg PO DAILY 90 days aspirin 81 mg PO DAILY 90 days atorvastatin 80 mg PO DAILY 90 days hydrochlorothiazide 25 mg PO DAILY 90 days lisinopril 40 mg PO DAILY 90 days metoprolol succinate ER 200 mg PO DAILY 90 days triamcinolone acetonide 0.5% 1 appl topical BID PRN Tobacco use date assessed: 03/18/24 Dental Screening Dental Screen Date: 03/18/24 Did you have a dental visit in the last 12 months?: Yes Did you have a dental problem in the last 6 months where you did not have access to dental care?: No Was dental information given to patient?: Patient has dentist HPI 6mof\u HPI Details Patient comes in today for his follow-up visit States that he feels okay He denies any headaches or dizziness Denies any chest pains, no shortness of breath No nausea/vomiting, no abdominal pain No change in bowel habits noted He was not able to get his follow-up labs done prior to his appointment today FORMERLY [facility], [facility] Medical History Impaired fasting glucose Obesity (BMI 30-39.9) Allergic rhinitis Hemorrhoids Benign prostatic hyperplasia Pulmonary nodules Pure hypercholesterolemia Benign essential hypertension Premature ventricular contractions Hypertension Hyperlipidemia Coronary artery disease Surgical History History of coronary artery stent placement Family History Father Lung cancer Mother Hypertension Social History Housing: House Alcohol intake: current Alcohol intake frequency: a few times a week Alcohol type: beer Patient Tobacco Use Status: Former Tobacco user e-Cigarette/Vaping Use: Never Used Second Hand Smoke Exposure: Yes service: No Current occupational status: employed Cognitive needs: No Hearing needs: No Vision needs: Yes Questionnaire PHQ-9 Over the last 2 weeks, how often have you been bothered by any of the following problems? 1. Little interest or pleasure in doing things: not at all 2. Feeling down, depressed, or hopeless: not at all 3. Trouble falling or staying asleep, or sleeping too much: not at all 4. Feeling tired or having little energy: not at all 5. Poor appetite or overeating: not at all 6. Feeling bad about yourself - or that you are a failure or have let yourself or your family down: not at all 7. Trouble concentrating on things, such as reading the newspaper or watching television: not at all 8. Moving or speaking so slowly that other people could have noticed. Or the opposite - being so fidgety or restless that you have been moving around a lot more than usual: not at all 9. Thoughts that you would be better off or of hurting yourself in some way: not at all Total score: 0 Depression Screening Interpretation: Negative Depression Screening Done: Yes 57893 - PHQ-9 Billing: Yes Source: Developed by Drs. Gasper Rolon, Jany Gooden, Booker Santos and colleagues, with an educational zuleyka from [employer]. Thrive Questionnaire Date Thrive assessed: 03/18/24 I am a: Patient What is your living situation today?: I have a steady place to live Within the past 12 months, did the food you bought not last and you didn't have the money to get more?: Never true Within the past 12 months, did you worry whether your food would run out before you got money to buy more?: Never true Do you have trouble paying for medicines?: No Do you have trouble getting transportation to medical appointments?: No Do you have trouble paying your heating and electricity bill?: No Do you have trouble taking care of your child, family member or friend?: No Do you have trouble with day-to-day activities such as bathing, preparing meals, shopping, managing finances, etc.?: No Are you currently unemployed and looking for a job?: No Are you interested in more education?: No Please select the resources that you would like help with: None Currently or been in a relationship where the following occur: No concerns reported THRIVE Score: 0 AUDIT C Alcohol Use Questionnaire (AUDIT-C) 1. How often do you have a drink containing alcohol?: Monthly or less 2. How many drinks containing alcohol do you have on a typical day when you are drinking?: 1 or 2 3. How often do you have six or more drinks on one occasion?: Never Total Score: 1 Score Reviewed/Action Taken: Yes PAM-7 AMB Questionnaire PAM-7 Date PAM - 7 assessed: 03/18/24 Feeling nervous, anxious, or on edge: 0 = Not at all Not being able to stop or control worryin = Not at all Worrying too much about different things: 0 = Not at all Trouble relaxin = Not at all Being so restless that it is hard to sit still: 0 = Not at all Becoming easily annoyed or irritable: 0 = Not at all Feeling afraid as if something awful might happen: 0 = Not at all Total PAM-7 score (0-4 normal; 5-9 mild; 10-14 moderate; 15-21 severe): 0 Source: Developed by Drs. Gasper Rolon, Jany Gooden, Booker Santos and colleagues, with an educational zuleyka from [employer]. PAM-7 Assessment Billing PAM-7 Assessment Tool: PAM-7 Assessment 50840 Review of Systems Const Denies chills, Denies fatigue, Denies fever(s) and Denies headache(s) ENT Denies dysphagia, Denies dizziness, Denies otalgia, Denies headache(s), Denies neck pain, Denies odynophagia and Denies sore throat Card Denies chest pain, Denies palpitations and Denies dyspnea Resp Denies cough, Denies pain on inspiration, Denies dyspnea and Denies wheezing GI Denies abdominal pain, Denies constipation, Denies dysphagia, Denies heartburn, Denies diarrhea, Denies nausea, Denies odynophagia and Denies vomiting Denies dysuria, Denies nocturia and Denies urinary frequency Musc Reports back pain (over the lower back) and Denies neck pain Skin/Breast Reports rash (on the fingers, as per HPI) Neuro Denies dizziness and Denies headache(s) Endo Denies fatigue and Denies palpitations Aller/Immun Denies wheezing Physical exam (Primary Care) Vital Signs: Last Vital Signs Pulse 59 03/18/24 10:37 BP 100/80 03/18/24 10:37 Pulse Ox 98 03/18/24 10:37 Oxygen Delivery Method Room Air 03/18/24 10:37 BMI result Body Mass Index 31.4 Tobacco/Smoking Status: Tobacco use Status Tobacco use date assessed 03/18/24 03/18/24 10:40 Patient Tobacco Use Status Former Tobacco user 03/18/24 10:40 e-Cigarette/Vaping Use Never Used 03/18/24 10:40 PHQ-9: PHQ-9 Score PHQ-9: Total score 0 03/18/24 11:19 Depression Screening Interpretation: Negative Thrive Assessment: Date of Thrive Assessment Date Thrive assessed 03/18/24 03/18/24 10:40 Currently or been in a relationship where the following occur: No concerns reported Const General: no acute distress and alert HENMT Ears: TM's normal bilaterally and EAC's normal Throat: Yes posterior oropharynx normal and Yes tonsils normal (no TP congestion) Neck Neck: Yes no lymphadenopathy and Yes supple Thyroid: Thyroid normal Resp Auscultation: clear to auscultation bilaterally, no rales and no wheezes Cardio Rate: regular rate Rhythm: regular rhythm Heart sounds: no murmurs GI Palpation (GI): Soft to palpation and nontender Auscultation: normal bowel sounds General: Yes no CVA tenderness Back/Spine/Pelvis Back: no CVA tenderness Thoracic/Lumbar Spine: lumbar spinal tenderness Skin Rashes: rashes noted (recurrent itchy rash over a couple of fingers on the left hand) Extrem General: Yes no clubbing, cyanosis or edema Coding Level of Care Code Est Pt Level 4 (95561) Diagnoses Coronary artery disease involving comanche coronary artery of comanche heart without angina pectoris I25.10 Coronary Disease-Associated Artery/Lesion type: comanche artery [place] vs. transplanted heart: comanche heart Associated angina: without angina Premature ventricular contractions I49.3 Pure hypercholesterolemia E78.00 Benign essential hypertension I10 Impaired fasting glucose R73.01 Pulmonary nodules R91.8 Elevated LFTs R79.89 Hyperbilirubinemia E80.6 Benign prostatic hyperplasia, unspecified whether lower urinary tract symptoms present N40.0 Lower urinary tract symptom presence: unspecified whether lower urinary tract symptoms present Erectile dysfunction associated with type 2 diabetes mellitus E11.69; N52.1 Obesity (BMI 30-39.9) E66.9 Additional Codes PAM-7 Assessment Billing - PAM-7 Assessment Tool: PAM-7 Assessment 10728 ([id number]) PHQ-9 - 64265 - PHQ-9 Billing: Yes ([id number]) Assessment & Plan Assessment & Plan (1) Coronary artery disease: Comment: S/P MA, with stenting of RCA and LCx in 05/2005 and stenting of proximal LAD in 03/2011 Code(s): I25.10 - Atherosclerotic heart disease of comanche coronary artery without angina pectoris Category: Medical Qualifiers: Coronary Disease-Associated Artery/Lesion type: com[place] artery [place] vs. transplanted heart: comanche heart Associated angina: without angina Qualified Code(s): I25.10 - Atherosclerotic heart disease of comanche coronary artery without angina pectoris Plan: Continue Aspirin 81 mg QD Follow up with [facility] as scheduled - patient used to see Dr. Tilley until he left for [place] a few years ago (2) Premature ventricular contractions: Code(s): I49.3 - Ventricular premature depolarization Category: Medical Plan: Patient reports that he's had no recurrence of his cardiac symptoms lately Continue Metoprolol ER 200 mg QD (3) Pure hypercholesterolemia: Code(s): E78.00 - Pure hypercholesterolemia, unspecified Category: Medical Plan: He has not had his follow up labs and fasting lipids done recently but his LDL cholesterol back in September 2023 was excellent at 63 mg/dl Reinforced low cholesterol diet Continue Atorvastatin 80 mg QD Will recheck his labs and fasting lipids in 6 months for follow up (4) Benign essential hypertension: Code(s): I10 - Essential (primary) hypertension Category: Medical Plan: Reinforced low sodium diet - goal is systolic BP of at least 130 mm or less Continue Metoprolol ER 200 mg QD, Amlodipine 5 mg QD, Lisinopril 40 mg QD and HCTZ 25 mg QD He is reminded to continue monitoring his blood pressure regularly (5) Impaired fasting glucose: Code(s): R73.01 - Impaired fasting glucose Category: Medical Plan: His FBS was at 105 mg/dl and HgbA1c was normal at 5.6% when previously checked Reinforced low calorie/low carb diet (6) Pulmonary nodules: Code(s): R91.8 - Other nonspecific abnormal finding of lung field Category: Medical Plan: Chest CT last done on 02/20/2017 showed scattered parenchymal nodules throughout the right lung measuring up to 4 mm Per Fleischner Society 2017 guidelines, no follow up CT was done as risk of malignancy was deemed low with size of nodules < 6 mm Repeat chest x-rays done in May 2021 showed no evidence of aforementioned nodules - no further follow up testing is required if patient has had no other symptoms (7) Elevated LFTs: Code(s): R79.89 - Other specified abnormal findings of blood chemistry Category: Medical Plan: Patient's LFTs were still elevated on his labs done back in September 2023 Abdominal US done last year in July 2022 revealed diffusely increased liver echogenicity which is a nonspecific finding but is most suggestive of hepatic steatosis He is again advised that losing weight should help get his LFTs back to normal (8) Hyperbilirubinemia: Code(s): E80.6 - Other disorders of bilirubin metabolism Category: Medical Plan: ? Gilbert's syndrome ? - patient has been asymptomatic so far Abdominal US done in July 2022 revealed diffusely increased liver echogenicity but no other hepatic abnormalities noted. There are suspected parapelvic cysts of the left kidney with fullness of the right-sided collecting system versus parapelvic cysts fullness of the collecting system noted but these likely have no relation to his elevated bilirubin level (9) Benign prostatic hyperplasia: Code(s): N40.0 - Benign prostatic hyperplasia without lower urinary tract symptoms Category: Medical Qualifiers: Lower urinary tract symptom presence: unspecified whether lower urinary tract symptoms present Qualified Code(s): N40.0 - Benign prostatic hyperplasia without lower urinary tract symptoms Plan: Continue Alfusozin ER 10 mg QD Follow up with urology as scheduled (10) Erectile dysfunction associated with type 2 diabetes mellitus: Code(s): E11.69 - Type 2 diabetes mellitus with other specified complication; N52.1 - Erectile dysfunction due to diseases classified elsewhere Category: Medical Plan: Continue Tadalafil 10 mg QD PRN (11) Obesity (BMI 30-39.9): Code(s): E66.9 - Obesity, unspecified Category: Medical Plan: Reinforced diet/exercise as tolerated/lose weight Plan Follow up in 6 months Orders: Orders Lipid Panel 6 Months E78.00 - Pure hypercholesterolemia, unspecified Comprehensive [place]. Panel Fast 6 Months E78.00 - Pure hypercholesterolemia, unspecified TSH reflex Free T4 6 Months E78.00 - Pure hypercholesterolemia, unspecified Vitamin D 25-OH Total 6 Months E55.9 - Vitamin D deficiency, unspecified Complete Blood Count Auto Diff 6 Months D64.9 - Anemia, unspecified UA CC w/rflx Micro + Cult 6 Months R30.0 - Dysuria
[2024-03-18 10:37] VITALS: BP 100/80; PULSE 59; O2SAT 98; BMI 31.4
== END 2024-03-18 11:23 | disposition home or self-care (01) ==
PROVIDERS: PCP Internal Medicine; Visit Provider Internal Medicine
DX: I25.10 Atherosclerotic heart disease of native coronary artery without angina pectoris (principal); I49.3 Ventricular premature depolarization; E78.00 Pure hypercholesterolemia, unspecified; E11.69 Type 2 diabetes mellitus with other specified complication; E66.811 Obesity, class 1; Z68.34 Body mass index [BMI] 34.0-34.9, adult; I10 Essential (primary) hypertension; R73.01 Impaired fasting glucose; R91.8 Other nonspecific abnormal finding of lung field; E80.6 Other disorders of bilirubin metabolism; N40.0 Benign prostatic hyperplasia without lower urinary tract symptoms; N52.1 Erectile dysfunction due to diseases classified elsewhere

== ENCOUNTER → 2024-03-18 10:31 | Outpatient (BNVA) | payer OTHER, SELFPAY | PROVIDERS: PCP Internal Medicine; Visit Provider Internal Medicine | DX: I25.10 Atherosclerotic heart disease of native coronary artery without angina pectoris (principal); I49.3 Ventricular premature depolarization; E78.00 Pure hypercholesterolemia, unspecified; I10 Essential (primary) hypertension; R91.8 Other nonspecific abnormal finding of lung field; R79.89 Other specified abnormal findings of blood chemistry; E80.6 Other disorders of bilirubin metabolism; N40.0 Benign prostatic hyperplasia without lower urinary tract symptoms; E11.69 Type 2 diabetes mellitus with other specified complication; N52.1 Erectile dysfunction due to diseases classified elsewhere; E66.9 Obesity, unspecified; Z68.31 Body mass index [BMI] 31.0-31.9, adult; I25.2 Old myocardial infarction; Z79.82 Long term (current) use of aspirin; Z79.899 Other long term (current) drug therapy | CPT/HCPCS: 96127 ==

== ENCOUNTER 2024-04-19 10:41 | Outpatient (AMB) | payer OTHER, SELFPAY ==
--- NOTE | 2024-04-19 10:48 | MHC.OFFVIS ---
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 Garrett. He has a past medical history of obesity, allergic rhinitis, ED, hemorrhoids, BPH, pulmonary nodules, trigger finger, hypercholesteremia, hypertension, coronary artery disease status post SD with stenting of RCA and LCx. He presents to the office today for follow-up of his BPH and ED. In discussion with the patient today reports to be doing and feeling well. He reports compliance with alfuzosin as prescribed. He reports having went on vacation to [facility] and forgot his prescription of alfuzosin and noted a difference in his urinary stream and lower urinary tract symptoms however he does continue to feel bothersome lower urinary tract symptoms. He had previously trialed Flomax however felt bothered by retrograde ejaculation therefore he was switched to 10 mg of alfuzosin. We discussed further treatment options to include trial of terazosin verses doxazosin. We also discussed in office cystoscopy and or urodynamics for further assessment evaluation. Previous workup has included CT urogram 11/01 noting benign bilateral parapelvic renal cysts which account for the findings seen on the recent ultrasound. These require no additional imaging or follow-up. There is no hydronephrosis. Incidental note made of mild BPH and colonic diverticulosis. He otherwise denies incontinence, hematuria, dysuria, foul smelling urine, flank pain, fever, and or chills. In office urinalysis results reviewed with the patient today. PVR 64mL. PSAs are as noted and trended below: 02/25 1.5, 06/01 1.2, 07/03 1.4, 10/01 1.3 PFS Medical History Impaired fasting glucose Obesity (BMI 30-39.9) Allergic rhinitis Hemorrhoids Benign prostatic hyperplasia Pulmonary nodules Pure hypercholesterolemia Benign essential hypertension Premature ventricular contractions Hypertension Hyperlipidemia Coronary artery disease Surgical History History of coronary artery stent placement Family History Father Lung cancer Mother Hypertension Social History Housing: House Alcohol intake: current Alcohol intake frequency: a few times a week Alcohol type: beer Patient Tobacco Use Status: Former Tobacco user e-Cigarette/Vaping Use: Never Used Second Hand Smoke Exposure: Yes service: No Current occupational status: employed Cognitive needs: No Hearing needs: No Vision needs: Yes Review of Systems Const Reports no additional complaints Eyes Reports no additional complaints ENT Reports no additional complaints Card Reports as per HPI Resp Reports as per HPI GI Reports as per HPI Reports as per HPI Musc Reports as per HPI Neuro Reports no additional complaints Psych Reports no additional complaints Endo Reports as per HPI Neftaly/Lymph Reports no additional complaints Aller/Immun Reports as per HPI Physical Exam Const General: cooperative, healthy appearing, comfortable, no acute distress, well developed, alert and awake Nutritional Appearance: overweight Orientation/consciousness: patient oriented x3 Limitations: no limitations HEENT Head: Yes normal to inspection, Yes normocephalic and Yes atraumatic Ears: hearing grossly normal bilaterally Eyes General: appearance normal, both eyes and all related structures Neck Neck: Yes normal visual inspection Chest Chest palpation & inspection: normal inspection of the chest Resp Effort & Inspection: normal respiratory effort and able to speak in complete sentences Cardio Rate: regular rate General: Yes no CVA tenderness Back/Spine/Pelvis Back: no CVA tenderness Cervical Spine: normal cervical lordosis Neuro General: patient oriented x3 Psych Appearance: grossly normal and well kempt Mental Status: mental status grossly normal Speech and movement: Normal speech and movement present Affect: normal affect Attitude: cooperative Thought process: Normal thought process present Thought content: Normal thought content present Insight: Fair insight present (Psych) Judgement: Fair judgement present (Psych) Office Procedures Post Void Residual Post Residual Void Post Void Residual (PVR): 64 38904-Ibpl Void Residual by ultrasound Results AMB Urinalysis, Automated UA Leukoctes 0 Anatoliy/uL Last Edit by Ambika Willuoghby, KAYLA on 04/19/24 11:00 UA Nitrite Negative Last Edit by Ambika Willoughby, KAYLA on 04/19/24 11:00 UA Urobilinogen 0.2 mg/dL Last Edit by Ambika Willoughby, KAYLA on 04/19/24 11:00 UA Protein 0 mg/dL Last Edit by Ambika Willoughby, BIOMETRICS SPECIALIST on 04/19/24 11:00 UA pH 6.0 Last Edit by Ambika Willoughby, BIOMETRICS SPECIALIST on 04/19/24 11:00 UA Blood 25 Daniel/uL Last Edit by Ambika Willoughby, BIOMETRICS SPECIALIST on 04/19/24 11:00 UA Specific [place] 1.025 Last Edit by Ambika Willoughby, KAYLA on 04/19/24 11:00 UA Ketone Negative Last Edit by Ambika Willoughby, BIOMETRICS SPECIALIST on 04/19/24 11:00 UA Bilirubin 0 mg/dL Last Edit by Ambika Willoughby, BIOMETRICS SPECIALIST on 04/19/24 11:00 UA Glucose 0 mg/dL Last Edit by Ambika Willoughby, KAYLA on 04/19/24 11:00 Results Reviewed Results Reviewed: Laboratory Last Values Urine pH (Auto) 6.0 04/19/24 10:50 Specific [place] (Auto) 1.025 04/19/24 10:50 Urine Protein (Auto) 0 mg/dL 04/19/24 10:50 Glucose (UA)(Auto) 0 mg/dL 04/19/24 10:50 Urine Ketones (Auto) Negative 04/19/24 10:50 Urine Blood (Auto) 25 Daniel/uL 04/19/24 10:50 Urine Nitrite (Auto) Negative 04/19/24 10:50 Urine Bilirubin (Auto) 0 mg/dL 04/19/24 10:50 Urine Urobilinogen (Auto) 0.2 mg/dL 04/19/24 10:50 Leukocyte Esterase (Auto) 0 Anatoliy/uL 04/19/24 10:50 Assessment & Plan Assessment & Plan (1) Nocturia: Code(s): R35.1 - Nocturia Category: Medical (2) BPH with obstruction/lower urinary tract symptoms: Code(s): N40.1 - Benign prostatic hyperplasia with lower urinary tract symptoms; N13.8 - Other obstructive and reflux uropathy Category: Medical Plan In office urinalysis results with the patient today; as noted above. PVR 64 mL. We discussed further treatment options of lower urinary tracts symptoms patient is experiencing. Stop alfuzosin. Start terazosin 5 mg at bedtime as discussed and prescribed. Discussed further treatment options to include in office cystoscopy and or urodynamics for further assessment evaluation. Discussed bladder triggers/irritants. Follow-up in 1 to 2 months with PVR; or sooner with any issues, concerns, and or questions. Orders: Orders AMB Urinalysis Automated Today Z13.9 - Encounter for screening, unspecified AMB Post Void Residual by ultrasound Today R35.1 - Nocturia Medications: New terazosin 5 mg PO BEDTIME 30 days 30 caps 3RF N40.1 - Benign prostatic hyperplasia with lower urinary tract symptoms, R35.0 - Frequency of micturition Discontinued alfuzosin ER Take before bedtime Discontinued Reason: Doctor's Order 10 mg PO BEDTIME 90 days 90 tabs 3RF N32.0 - Bladder-neck obstruction, N40.1 - Benign prostatic hyperplasia with lower urinary tract symptoms, R33.9 - Retention of urine, unspecified, R35.1 - Nocturia, R39.12 - Poor urinary stream Patient Instructions: The patient had an opportunity to ask questions regarding the treatment plan. All questions were answered. Physical exam, labs, and imaging were discussed and reviewed in detail. As well as risks, benefits, and discussion of treatment choices. No major barriers to understanding were identified. The patient expressed understanding and agreement with the above treatment plan. The patient was made aware they should contact our office by phone for worsening of their current condition, the appearance of new symptoms, or with any questions or concerns. Compliance is encouraged with any medications and follow up testing that is ordered. It is a privilege to be allowed the opportunity to participate in? your urological care.? Again, if you have any questions or concerns If you have any questions or concerns please do not hesitate to contact me. The office is [phone]. This note is constructed using voice recognition software. While every effort has been made to ensure accuracy acquisition advisor errors may have been included. Yours sincerely, Hannah Bravo, ALOK-BC Coding Level of Care Code Est Pt Level 4 (31952) Diagnoses Nocturia R35.1 BPH with obstruction/lower urinary tract symptoms N40.1; N13.8 CPT Codes Post Residual Void - PVR CPT Code: 42728-Mvho Void Residual by ultrasound ([id number])
== END 2024-04-19 11:22 | disposition home or self-care (01) ==
PROVIDERS: PCP Internal Medicine; Visit Provider Nurse Practitioner Family
DX: Z13.9 Encounter for screening, unspecified (principal)

== ENCOUNTER → 2024-04-19 10:41 | Outpatient (BNVA) | payer OTHER, SELFPAY | PROVIDERS: PCP Internal Medicine; Visit Provider Nurse Practitioner Family | DX: N40.1 Benign prostatic hyperplasia with lower urinary tract symptoms (principal); N13.8 Other obstructive and reflux uropathy; R35.1 Nocturia; N52.9 Male erectile dysfunction, unspecified | CPT/HCPCS: 51798; 81003 ==

== ENCOUNTER 2024-07-29 09:27 | Outpatient (AMB) | payer OTHER, SELFPAY ==
[2024-07-29 09:30] VITALS: BP 100/74; PULSE 69; TEMP 36.6; O2SAT 97; BMI 33.2
--- NOTE | 2024-07-29 09:30 | MHC.PC.OV ---
Vital Signs 07/29/24 09:30 Height 5 ft 6 in Weight 205 lb 9.6 oz BMI 33.2 BP 100/74 Blood Pressure Location Lt brachial Position Sitting Pulse 69 Pulse Source Pulse Oximeter Temp 97.8 F Temp Source Oral Pulse Oximetry (%) 97 Oxygen Delivery Method Room Air Intake Visit Reasons: [facility] 05/25 [employer] Required: No Accompanied by: Self / Same As Patient Allergies No Known Allergies Allergy (Verified 07/29/24 09:44) Medication List - Last Reconciled 07/29/24 by ERICK Amaya amlodipine 5 mg PO DAILY 90 days aspirin 81 mg PO DAILY 90 days atorvastatin 80 mg PO DAILY 90 days hydrochlorothiazide 25 mg PO DAILY 90 days lisinopril 40 mg PO DAILY 90 days metoprolol succinate ER 200 mg PO DAILY 90 days terazosin 5 mg PO BEDTIME 30 days ticagrelor (Brilinta) mg PO ONCE triamcinolone acetonide 0.5% 1 appl topical BID PRN Tobacco use date assessed: 07/29/24 Dental Screening Dental Screen Date: 07/29/24 Did you have a dental visit in the last 12 months?: Yes Did you have a dental problem in the last 6 months where you did not have access to dental care?: No Was dental information given to patient?: Patient has dentist HPI [facility] 05/25 HPI Details The patient is a 58-year-old male with hx of ACS with stent placement x3 that went into [facility] ER for dyspnea on exertion intermittently x4 days associated with precordial chest tightness, nausea, diaphoresis and generalized weakness in his extremities EKG: Normal sinus with no ectopy, left axis deviation LVH similar to EKG from January 13, 2023 Troponin stable, PE unlikely. Cardiology on board CT the done status post right LOUISE stent Started on Brilinta, continue ASA/statin Patient was discharged home with plans for cardiac rehab The patient reports that the Brilinta is going to be switched to plavis 75 mg next week due to side effects for the Brilinta. Reports that he is having increased SOB-which they explained that it is a side effect. Reports that he have been on plavis before and it works and he had no side effects. Reports that he saw cardiology at the beginning of this month and was told to f/u in 6 months Reports Intermittently sob in situation that you don't expect reports that he was told that this is a side effect of the medication Reports that the cardiac rehab-is 50 dollars a visit Reports that he better off getting a gym membership lungs clear, capillary refill less than 3 second,no calf pain or edema Denies chest pain, heart palpitation or dizziness [facility] Medical History Impaired fasting glucose Obesity (BMI 30-39.9) Allergic rhinitis Hemorrhoids Benign prostatic hyperplasia Pulmonary nodules Pure hypercholesterolemia Benign essential hypertension Premature ventricular contractions Hypertension Hyperlipidemia Coronary artery disease Surgical History History of coronary artery stent placement Family History Father Lung cancer Mother Hypertension Social History Housing: House Alcohol intake: current Alcohol intake frequency: a few times a week Alcohol type: beer Patient Tobacco Use Status: Former Tobacco user e-Cigarette/Vaping Use: Never Used Second Hand Smoke Exposure: Yes service: No Current occupational status: employed Cognitive needs: No Hearing needs: No Vision needs: Yes Questionnaire PHQ-9 Over the last 2 weeks, how often have you been bothered by any of the following problems? 1. Little interest or pleasure in doing things: not at all 2. Feeling down, depressed, or hopeless: not at all 3. Trouble falling or staying asleep, or sleeping too much: not at all 4. Feeling tired or having little energy: not at all 5. Poor appetite or overeating: not at all 6. Feeling bad about yourself - or that you are a failure or have let yourself or your family down: not at all 7. Trouble concentrating on things, such as reading the newspaper or watching television: not at all 8. Moving or speaking so slowly that other people could have noticed. Or the opposite - being so fidgety or restless that you have been moving around a lot more than usual: not at all 9. Thoughts that you would be better off or of hurting yourself in some way: not at all Total score: 0 Depression Screening Interpretation: Negative Depression Screening Done: Yes 32477 - PHQ-9 Billing: Yes Source: Developed by Drs. Gasper Rolon, Jany Gooden, Booker Santos and colleagues, with an educational zuleyka from [employer]. Thrive Questionnaire Date Thrive assessed: 07/29/24 I am a: Patient What is your living situation today?: I have a steady place to live Within the past 12 months, did the food you bought not last and you didn't have the money to get more?: Never true Within the past 12 months, did you worry whether your food would run out before you got money to buy more?: Never true Do you have trouble paying for medicines?: No Do you have trouble getting transportation to medical appointments?: No Do you have trouble paying your heating and electricity bill?: No Do you have trouble taking care of your child, family member or friend?: No Do you have trouble with day-to-day activities such as bathing, preparing meals, shopping, managing finances, etc.?: No Are you currently unemployed and looking for a job?: No Are you interested in more education?: No Please select the resources that you would like help with: None Currently or been in a relationship where the following occur: No concerns reported THRIVE Score: 0 AUDIT C Alcohol Use Questionnaire (AUDIT-C) 1. How often do you have a drink containing alcohol?: Monthly or less 2. How many drinks containing alcohol do you have on a typical day when you are drinking?: 1 or 2 3. How often do you have six or more drinks on one occasion?: Never Total Score: 1 Score Reviewed/Action Taken: Yes PAM-7 AMB Questionnaire PAM-7 Date PAM - 7 assessed: 07/29/24 Feeling nervous, anxious, or on edge: 0 = Not at all Not being able to stop or control worryin = Not at all Worrying too much about different things: 0 = Not at all Trouble relaxin = Not at all Being so restless that it is hard to sit still: 0 = Not at all Becoming easily annoyed or irritable: 0 = Not at all Feeling afraid as if something awful might happen: 0 = Not at all Total PAM-7 score (0-4 normal; 5-9 mild; 10-14 moderate; 15-21 severe): 0 Source: Developed by Drs. Gasper Rolon, Jany Gooden, Booker Santos and colleagues, with an educational zuleyka from [employer]. PAM-7 Assessment Billing PAM-7 Assessment Tool: PAM-7 Assessment 99932 Review of Systems Const Details: Denies chills, Denies fatigue, Denies fever(s), Denies headache(s) and Denies weakness Cardiac Denies chest pain, Denies claudication, Denies leg edema, Denies lightheadedness, Denies palpitations, reports intermittent dyspnea, reports intermittent dyspnea on exertion, Denies orthopnea and Denies other (Loss of consciousness) denies any sign bleeding (Brilinta use) Resp Denies cough, Denies excessive phlegm production, reports intermittent dyspnea, reports intermittent dyspnea on exertion, Denies snoring and Denies wheezing Neuro Denies Abnormal speech present Physical exam (Primary Care) Vital Signs: Last Vital Signs Temp 97.8 F 07/29/24 09:30 Pulse 69 07/29/24 09:30 BP 100/74 07/29/24 09:30 Pulse Ox 97 07/29/24 09:30 Oxygen Delivery Method Room Air 07/29/24 09:30 BMI result Body Mass Index 33.2 Tobacco/Smoking Status: Tobacco use Status Tobacco use date assessed 07/29/24 07/29/24 09:33 Patient Tobacco Use Status Former Tobacco user 07/29/24 09:33 e-Cigarette/Vaping Use Never Used 07/29/24 09:33 PHQ-9: PHQ-9 Score PHQ-9: Total score 0 07/29/24 09:33 Depression Screening Interpretation: Negative Thrive Assessment: Date of Thrive Assessment Date Thrive assessed 07/29/24 07/29/24 09:33 Currently or been in a relationship where the following occur: No concerns reported Const General: healthy appearing, no acute distress, alert and awake Nutritional Appearance: well nourished Orientation/consciousness: oriented to person, oriented to place and oriented to time HENMT Ears: TM's normal bilaterally General nose exam: Normal nasal mucous membranes and turbinates present Eyes Conjunctivae: conjunctivae normal Sclerae: sclerae normal Pupils: Equal, round and reactive pupils present Neck Neck: Yes no lymphadenopathy and Yes no JVD Thyroid: Thyroid normal Carotids: no bruits Resp Effort & Inspection: normal respiratory effort and not tachypneic Auscultation: no crackles, no rales, no rhonchi and no wheezes Cardio Rate: regular rate Rhythm: regular rhythm Heart sounds: S1 normal heart sound present, no murmurs and normal S1 and S2 GI Palpation (GI): Soft to palpation, nontender, no hepatomegaly and no splenomegaly Auscultation: normal bowel sounds Skin General skin exam: no rashes or lesions noted and dry skin Neuro General: oriented to person, oriented to place and oriented to time Cranial nerves: Yes Equal, round and reactive pupils present Speech: No Abnormal speech present Gait exam (Neuro): Normal gait present Motor exam (neuro): no tremor noted Extrem General: Yes capillary refill normal, Yes no pedal edema and Yes no calf tenderness Right upper extremity: full ROM Left upper extremity: full ROM Right lower extremity: full ROM; no edema Left lower extremity: full ROM; no edema Coding Level of Care Code Est Pt Level 4 (37067) Diagnoses Coronary artery disease involving [place] coronary artery of [place] heart without angina pectoris I25.10 Coronary Disease-Associated Artery/Lesion type: [place] artery [place] vs. transplanted heart: [place] heart Associated angina: without angina Systolic congestive heart failure, unspecified HF chronicity I50.20 Heart failure chronicity: unspecified Benign essential hypertension I10 Pure hypercholesterolemia E78.00 Additional Codes PAM-7 Assessment Billing - PAM-7 Assessment Tool: PAM-7 Assessment 43277 ([id number]) PHQ-9 - 56132 - PHQ-9 Billing: Yes ([id number]) Time Spent (min) 35 Assessment & Plan Assessment & Plan (1) Coronary artery disease: Comment: S/P NV, with stenting of RCA and LCx in 05/2005 and stenting of proximal LAD in 03/2011 Code(s): I25.10 - Atherosclerotic heart disease of [place] coronary artery without angina pectoris Category: Medical Qualifiers: Coronary Disease-Associated Artery/Lesion type: [place] artery [place] vs. transplanted heart: [place] heart Associated angina: without angina Qualified Code(s): I25.10 - Atherosclerotic heart disease of [place] coronary artery without angina pectoris Plan: The patient went in with chest pain that resolved. Was ruled that PE was unlikely. Troponin stable. Cardiology was on board---catheterization done status post RCA stent. The patient was started on Brilinta. Continue aspirin and statin. Patient reports that he started experiencing shortness of breath and unlikely circumstances. Reports that he was told by Cardiology that this is a side effect of Brilinta. Patient also reports that Brilinta is extremely expensive. And he is planning to switch back to Plavix 75 next week and Cardiology is aware of this. Reports that he is feeling well overall today but still has intermittent shortness of breath Lungs are clear, no calf pain or edema (2) Systolic CHF: Code(s): I50.20 - Unspecified systolic (congestive) heart failure Category: Medical Qualifiers: Heart failure chronicity: unspecified Qualified Code(s): I50.20 - Unspecified systolic (congestive) heart failure Plan: This was noted on hospital. Per hospital note, this is likely chronic and ischemic. Recommendation to continue beta-austin and KEAGAN inhibitor (3) Benign essential hypertension: Code(s): I10 - Essential (primary) hypertension Category: Medical Plan: Encouraged DASH diet and activity as tolerated. Refrain from alcohol use and if you smoke, smoking cessation is strongly advised Continue amlodipine 5 mg daily, hydrochlorothiazide 25 mg daily, lisinopril 40 mg daily and metoprolol succinate ER 20 mg daily (4) Pure hypercholesterolemia: Code(s): E78.00 - Pure hypercholesterolemia, unspecified Category: Medical Plan: Reinforced low-cholesterol diet and activity as tolerated Continue Atorvastatin 80 mg daily
== END 2024-07-29 10:02 | disposition home or self-care (01) ==
LOC: HO.HMCH 09:28
PROVIDERS: PCP Internal Medicine
DX: I25.10 Atherosclerotic heart disease of native coronary artery without angina pectoris (principal); I50.20 Unspecified systolic (congestive) heart failure; I10 Essential (primary) hypertension; E78.00 Pure hypercholesterolemia, unspecified

== ENCOUNTER → 2024-07-29 09:27 | Outpatient (BNVA) | payer OTHER, SELFPAY | PROVIDERS: PCP Internal Medicine | DX: I25.10 Atherosclerotic heart disease of native coronary artery without angina pectoris (principal); I11.0 Hypertensive heart disease with heart failure; I50.20 Unspecified systolic (congestive) heart failure; E78.00 Pure hypercholesterolemia, unspecified; I25.2 Old myocardial infarction; Z79.82 Long term (current) use of aspirin; Z79.899 Other long term (current) drug therapy | CPT/HCPCS: 96127 ==

== ENCOUNTER 2024-10-10 11:40 | Outpatient (AMB) | payer OTHER, SELFPAY ==
--- NOTE | 2024-10-10 11:54 | MHC.OFFVIS ---
Intake Visit Reasons: 3M PVR Intake Note: Patient presents today for follow up on: nocturia and BPH Urology Medications: terazosin Blood Thinner: clopidogrel PVR: 57ml's Antisqueak Worker Required: No Accompanied by: Self / Same As Patient Allergies No Known Allergies Allergy (Verified 10/10/24 13:15) Medication List - Last Reconciled 10/10/24 by COTY HallP- amlodipine 5 mg PO DAILY 90 days aspirin 81 mg PO DAILY 90 days atorvastatin 80 mg PO DAILY 90 days clopidogrel 75 mg PO DAILY hydrochlorothiazide 25 mg PO DAILY 90 days lisinopril 40 mg PO DAILY 90 days metoprolol succinate ER 200 mg PO DAILY 90 days terazosin 5 mg PO BEDTIME 90 days triamcinolone acetonide 0.5% 1 appl topical BID PRN HPI Comments Details: Beata Brown is a pleasant 58-year-old male patient of Dr. Garrett. He has a past medical history of obesity, allergic rhinitis, ED, hemorrhoids, BPH, pulmonary nodules, trigger finger, hypercholesteremia, hypertension, coronary artery disease status post RI with stenting of RCA and LCx. He presents to the office today for follow-up of his BPH and ED. In discussion with the patient today reports to be doing and feeling well. He reports compliance with terazosin as prescribed. He reports significant improvement in lower urinary tract symptoms he had been experiencing. He reports noting symptoms return if he has skipped a dose and or takes it later in the day. He has previously trialed alfuzosin as well as Flomax and did not find these helpful. We also discussed in office cystoscopy and or urodynamics for further assessment evaluation. Previous workup has included CT urogram 11/01 noting benign bilateral parapelvic renal cysts which account for the findings seen on the recent ultrasound. These require no additional imaging or follow-up. There is no hydronephrosis. Incidental note made of mild BPH and colonic diverticulosis. He otherwise denies incontinence, hematuria, dysuria, foul smelling urine, flank pain, fever, and or chills. In office urinalysis results reviewed with the patient today. PVR 57mL. PSAs are as noted and trended below: 02/25 1.5, 06/01 1.2, 07/03 1.4, 10/01 1.3 Urine cytology: 10/01 & 12/01 Negative for high-grade urothelial carcinoma. [facility] Medical History Impaired fasting glucose Obesity (BMI 30-39.9) Allergic rhinitis Hemorrhoids Benign prostatic hyperplasia Pulmonary nodules Pure hypercholesterolemia Benign essential hypertension Premature ventricular contractions Hypertension Hyperlipidemia Coronary artery disease Surgical History History of coronary artery stent placement Family History Father Lung cancer Mother Hypertension Social History Housing: House Alcohol intake: current Alcohol intake frequency: a few times a week Alcohol type: beer Patient Tobacco Use Status: Former Tobacco user e-Cigarette/Vaping Use: Never Used Second Hand Smoke Exposure: Yes service: No Current occupational status: employed Cognitive needs: No Hearing needs: No Vision needs: Yes Review of Systems Const Reports no additional complaints Eyes Reports no additional complaints ENT Reports no additional complaints Card Reports as per HPI Resp Reports as per HPI GI Reports as per HPI Reports as per [facility] Musc Reports as per HPI Neuro Reports no additional complaints Psych Reports no additional complaints Endo Reports as per [facility] Neftaly/Lymph Reports no additional complaints Aller/Immun Reports as per [facility] Physical Exam Const General: cooperative, healthy appearing, comfortable, no acute distress, well developed, alert and awake Nutritional Appearance: overweight Orientation/consciousness: patient oriented x3 Limitations: no limitations HEENT Head: Yes normal to inspection, Yes normocephalic and Yes atraumatic Ears: hearing grossly normal bilaterally Eyes General: appearance normal, both eyes and all related structures Neck Neck: Yes normal visual inspection Chest Chest palpation & inspection: normal inspection of the chest Resp Effort & Inspection: normal respiratory effort and able to speak in complete sentences Cardio Rate: regular rate General: Yes no CVA tenderness Back/Spine/Pelvis Back: no CVA tenderness Cervical Spine: normal cervical lordosis Neuro General: patient oriented x3 Psych Appearance: grossly normal and well kempt Mental Status: mental status grossly normal Speech and movement: Normal speech and movement present Affect: normal affect Attitude: cooperative Thought process: Normal thought process present Thought content: Normal thought content present Insight: Fair insight present (Psych) Judgement: Fair judgement present (Psych) Results AMB Urinalysis, Automated UA Leukoctes 0 Anatoliy/uL Last Edit by Ray Lopez on 10/10/24 12:07 UA Nitrite Negative Last Edit by Ray Lopez on 10/10/24 12:07 UA Urobilinogen 0.2 mg/dL Last Edit by Ray Marriel on 10/10/24 12:07 UA Protein 0 mg/dL Last Edit by Ray Marriel on 10/10/24 12:07 UA pH 6.0 Last Edit by Ray Jessica on 10/10/24 12:07 UA Blood 25 Daniel/uL Last Edit by Ray Jessica on 10/10/24 12:07 UA Specific [place] 1.015 Last Edit by Ray Jessica on 10/10/24 12:07 UA Ketone Negative Last Edit by Ray Lopez on 10/10/24 12:07 UA Bilirubin 0 mg/dL Last Edit by Ray Lopez on 10/10/24 12:07 UA Glucose 0 mg/dL Last Edit by Ray Lopez on 10/10/24 12:07 Results Reviewed Results Reviewed: Laboratory Last Values Urine pH (Auto) 6.0 10/10/24 12:05 Specific [place] (Auto) 1.015 10/10/24 12:05 Urine Protein (Auto) 0 mg/dL 10/10/24 12:05 Glucose (UA)(Auto) 0 mg/dL 10/10/24 12:05 Urine Ketones (Auto) Negative 10/10/24 12:05 Urine Blood (Auto) 25 Daniel/uL 10/10/24 12:05 Urine Nitrite (Auto) Negative 10/10/24 12:05 Urine Bilirubin (Auto) 0 mg/dL 10/10/24 12:05 Urine Urobilinogen (Auto) 0.2 mg/dL 10/10/24 12:05 Leukocyte Esterase (Auto) 0 Anatoliy/uL 10/10/24 12:05 Assessment & Plan Assessment & Plan (1) BPH with obstruction/lower urinary tract symptoms: Code(s): N40.1 - Benign prostatic hyperplasia with lower urinary tract symptoms; N13.8 - Other obstructive and reflux uropathy Category: Medical (2) Parapelvic renal cyst: Code(s): N28.1 - Cyst of kidney, acquired Category: Medical (3) Nocturia: Code(s): R35.1 - Nocturia Category: Medical (4) Erectile dysfunction associated with type 2 diabetes mellitus: Code(s): E11.69 - Type 2 diabetes mellitus with other specified complication; N52.1 - Erectile dysfunction due to diseases classified elsewhere Category: Medical (5) Benign prostatic hyperplasia: Code(s): N40.0 - Benign prostatic hyperplasia without lower urinary tract symptoms Category: Medical Qualifiers: Lower urinary tract symptom presence: unspecified whether lower urinary tract symptoms present Qualified Code(s): N40.0 - Benign prostatic hyperplasia without lower urinary tract symptoms Plan In office urinalysis results reviewed with the patient today; as noted above. PVR 57 mL. Continue terazosin as discussed and prescribed. We discussed potential near future in office cystoscopy for further assessment evaluation if symptoms continue and or worsen. He reports be happy with current voiding parameters. Will continue with surveillance monitoring of microscopic hematuria as well as renal cysts. He currently denies any bothersome urinary issues or concerns. Will obtain PSA. Follow-up in 4-6 months with PSA and PVR; or sooner with any issues, concerns, and or questions. Orders: Orders AMB Post Void Residual by ultrasound Today R35.1 - Nocturia Urine Cytology Today R35.1 - Nocturia AMB Urinalysis Automated Today Z13.9 - Encounter for screening, unspecified Prostate Specific Antigen Today N13.8 - Other obstructive and reflux uropathy, N40.1 - Benign prostatic hyperplasia with lower urinary tract symptoms Patient Instructions: The patient had an opportunity to ask questions regarding the treatment plan. All questions were answered. Physical exam, labs, and imaging were discussed and reviewed in detail. As well as risks, benefits, and discussion of treatment choices. No major barriers to understanding were identified. The patient expressed understanding and agreement with the above treatment plan. The patient was made aware they should contact our office by phone for worsening of their current condition, the appearance of new symptoms, or with any questions or concerns. Compliance is encouraged with any medications and follow up testing that is ordered. It is a privilege to be allowed the opportunity to participate in? your urological care.? Again, if you have any questions or concerns If you have any questions or concerns please do not hesitate to contact me. The office is [phone]. This note is constructed using voice recognition software. While every effort has been made to ensure accuracy optical glass inspector errors may have been included. Yours sincerely, ALOK Hall-LUCY Coding Level of Care Code Est Pt Level 3 (84195) Diagnoses BPH with obstruction/lower urinary tract symptoms N40.1; N13.8 Parapelvic renal cyst N28.1 Nocturia R35.1 Erectile dysfunction associated with type 2 diabetes mellitus E11.69; N52.1 Benign prostatic hyperplasia, unspecified whether lower urinary tract symptoms present N40.0 Lower urinary tract symptom presence: unspecified whether lower urinary tract symptoms present
== END 2024-10-10 12:28 | disposition home or self-care (01) ==
LOC: HO.HUSH 11:40
PROVIDERS: PCP Internal Medicine; Visit Provider Nurse Practitioner Family
DX: N40.1 Benign prostatic hyperplasia with lower urinary tract symptoms (principal); N13.8 Other obstructive and reflux uropathy; N28.1 Cyst of kidney, acquired; R35.1 Nocturia; E11.69 Type 2 diabetes mellitus with other specified complication; N52.1 Erectile dysfunction due to diseases classified elsewhere; N40.0 Benign prostatic hyperplasia without lower urinary tract symptoms; Z13.9 Encounter for screening, unspecified
CPT/HCPCS: 99213

== ENCOUNTER 2024-10-10 11:40 | Outpatient (REF) | payer OTHER, SELFPAY | END 2024-10-10 11:41 | disposition home or self-care (01) | LOC: HO.LNP 11:40 | PROVIDERS: PCP Internal Medicine; Visit Provider Nurse Practitioner Family | DX: R35.1 Nocturia (principal) | CPT/HCPCS: 81003 ==

== ENCOUNTER 2025-01-19 08:46 | Outpatient (REF) | payer OTHER, SELFPAY ==
[2025-01-19 09:08] LABS: MANUAL DIFF FLAG NO
--- OUTSIDE RECORDS SUMMARY | 2025-01-19 09:51 | XMS_ITS ---
Author Name [facility] Organization Unknown Care Team Organization Name Specialty Phone Email Start Date End [facility] 11/28/2024
[2025-01-19 11:09] LABS: Hematocrit 45.1 % (42.0-52.0); Hemoglobin 15.6 g/dl (14.0-18.0); Imm Gran Abs Auto 0.01 X10*3/uL (0.00-0.03); Imm Gran Pct Auto 0.1 % (0.0-0.4); Lymphocytes Absolute Auto 2.9 X10*3/uL (1.2-4.9); Mean Corpuscular HGB Conc 34.6 g/dl (31.0-36.0); Mean Corpuscular Hemoglobin 31.0 pg (27.0-33.0); Mean Corpuscular Volume 89.7 fL (80.0-98.0); NRBC Abs Auto 0.000 X10*3/uL (0.0-0.012); NRBC Pct Auto 0.0 /100WBC (0.0-0.2); Platelet Count 172 X10*3/uL (160-400); Red Blood Count 5.03 X10*6/uL (4.60-5.80); White Blood Count 7.2 X10*3/uL (4.8-10.8)
[2025-01-19 11:56] LABS: Prostate Specific Antigen 1.66 ng/mL (<0.05-4.0)
[2025-01-19 11:57] LABS: Alanine Aminotransferase 88 U/L (0-40); Albumin Level 4.6 g/dL (3.5-5.0); Alkaline Phosphatase 47 U/L (39-117); Anion Gap 13 (12-20); Aspartate Amino Transferase 52 U/L (5-37); Blood Urea Nitrogen 19 mg/dL (9-16); Calcium 9.0 mg/dL (8.4-10.2); Carbon Dioxide 28 mmol/L (22-29); Chloride 105 mmol/L (96-108); Cholesterol 131 mg/dL (<200); Estimated Glomerular Filt Rate > 60; HDL Cholesterol 49 mg/dL (>40); Potassium 3.5 mmol/L (3.3-5.1); Sodium 142 mmol/L (135-145); Total Protein 7.1 g/dL (6.5-8.0); Triglycerides 93 mg/dL (<150)
[2025-01-19 12:37] LABS: Free T4 (Free Thyroxine) 0.80 ng/dL (0.71-1.85)
[2025-01-19 12:58] LABS: Appearance Urine Clear; Glucose Urine UA Negative (Negative); PH 5.5 (5.0-9.0); Specific Gravity - Urine 1.020 (1.005-1.025)
== END 2025-01-19 08:47 | disposition home or self-care (01) ==
LOC: HO.LAB 08:46
PROVIDERS: Absent Provider Nurse Practitioner Family; PCP Internal Medicine; Visit Provider Internal Medicine
DX: N40.1 Benign prostatic hyperplasia with lower urinary tract symptoms (principal); N13.8 Other obstructive and reflux uropathy; R35.1 Nocturia; R30.0 Dysuria; E78.00 Pure hypercholesterolemia, unspecified; E55.9 Vitamin D deficiency, unspecified; D64.9 Anemia, unspecified; Z12.5 Encounter for screening for malignant neoplasm of prostate
CPT/HCPCS: 36415; 80053; 80061; 81003; 82306; 84153; 84439; 84443; 85025; 88112

== ENCOUNTER 2025-01-20 14:25 | Outpatient (AMB) | payer OTHER, SELFPAY ==
[2025-01-20 14:45] VITALS: BP 102/70; PULSE 65; O2SAT 95; BMI 34.2
--- NOTE | 2025-01-20 14:45 | MHC.PC.OV ---
Vital Signs 01/20/25 14:45 Height 5 ft 6 in Weight 212 lb 2 oz BMI 34.2 BP 102/70 Blood Pressure Location Lt brachial Position Sitting Pulse 65 Pulse Source Pulse Oximeter Pulse Oximetry (%) 95 Oxygen Delivery Method Room Air Intake Visit Reasons: HTN, hyperlipidemia, CAD Student Life Dean Required: No Accompanied by: Self / Same As Patient Allergies No Known Allergies Allergy (Verified 01/20/25 15:03) Medication List - Last Reconciled 01/20/25 by Robert Garrett MD amlodipine 5 mg PO DAILY 90 days aspirin 81 mg PO DAILY 90 days atorvastatin 80 mg PO DAILY 90 days clopidogrel 75 mg PO DAILY hydrochlorothiazide 25 mg PO DAILY 90 days lisinopril 40 mg PO DAILY 90 days metoprolol succinate ER 200 mg PO DAILY 90 days terazosin 5 mg PO BEDTIME 90 days triamcinolone acetonide 0.5% 1 appl topical BID PRN Tobacco use date assessed: 01/20/25 Dental Screening Dental Screen Date: 01/20/25 Did you have a dental visit in the last 12 months?: Yes Did you have a dental problem in the last 6 months where you did not have access to dental care?: No Was dental information given to patient?: Patient has dentist HPI HTN, hyperlipidemia, CAD HPI Details Patient comes in today for his follow up visit States that he presently feels okay He denies any headaches but reports (+) on and off dizziness/lightheadness, especially when he gets up too quickly Notes that his symptoms also tend to occur 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 - he has noticed at times when he gets up in the morning that his systolic blood pressure can get down into the mid 90s mm and he is concerned that he is now on too much medications for his blood pressure He denies any exertional chest pains, no increased SOB No nausea/vomiting, no abdominal pain No change in bowel habits noted He has also been experiencing recurrent low back pain lately - he points to the paraspinal areas on his lower lumbar region, just above the iliac bones, as the areas where the pain occurs He had his follow up labs done yesterday - to discuss his results [facility] Medical History Impaired fasting glucose Obesity (BMI 30-39.9) Allergic rhinitis Hemorrhoids Benign prostatic hyperplasia Pulmonary nodules Pure hypercholesterolemia Benign essential hypertension Premature ventricular contractions Hypertension Hyperlipidemia Coronary artery disease Surgical History History of coronary artery stent placement Family History Father Lung cancer Mother Hypertension Social History Housing: House Alcohol intake: current Alcohol intake frequency: a few times a week Alcohol type: beer Patient Tobacco Use Status: Former Tobacco user e-Cigarette/Vaping Use: Never Used Second Hand Smoke Exposure: Yes service: No Current occupational status: employed Cognitive needs: No Hearing needs: No Vision needs: Yes Questionnaire PHQ-9 Over the last 2 weeks, how often have you been bothered by any of the following problems? Depression Screening Interpretation: Negative Depression Screening Done: Yes Source: Developed by Drs. Gasper Rolon, Jany Gooden, Booker Santos and colleagues, with an educational zuleyka from [employer]. Thrive Questionnaire Date Thrive assessed: 07/29/24 Currently or been in a relationship where the following occur: No concerns reported THRIVE Score: 0 AUDIT C Alcohol Use Questionnaire (AUDIT-C) 1. How often do you have a drink containing alcohol?: Monthly or less 2. How many drinks containing alcohol do you have on a typical day when you are drinking?: 1 or 2 3. How often do you have six or more drinks on one occasion?: Never Total Score: 1 Score Reviewed/Action Taken: Yes PAM-7 AMB Questionnaire PAM-7 Date PAM - 7 assessed: 07/29/24 Source: Developed by Drs. Gasper Rolon, Jany Gooden, Booker Santos and colleagues, with an educational zuleyka from [employer]. Review of Systems Const Denies chills, Denies fatigue, Denies fever(s) and Denies headache(s) ENT Denies dysphagia, Reports dizziness (on and off - see HPI), Denies otalgia, Denies headache(s), Denies neck pain, Denies odynophagia and Denies sore throat Card Denies chest pain, Denies palpitations and Denies dyspnea Resp Denies chest congestion, Denies cough, Denies pain on inspiration and Denies dyspnea GI Denies abdominal pain, Denies constipation, Denies dysphagia, Denies heartburn, Denies diarrhea, Denies nausea, Denies odynophagia and Denies vomiting Denies difficulty urinating, Denies dysuria, Denies nocturia and Denies urinary frequency Musc Reports back pain (over the lower back), Denies neck pain and Reports numbness (over the left thigh and left hip area at times) Skin/Breast Denies rash Neuro Reports dizziness (on and off - see HPI), Denies headache(s) and Reports numbness (over the left thigh and left hip area at times) Psych Denies anxiety Endo Denies fatigue and Denies palpitations Physical exam (Primary Care) Vital Signs: Oxygen Delivery Method Room Air 01/20/25 14:45 Tobacco/Smoking Status: Tobacco use Status Tobacco use date assessed 07/29/24 07/29/24 09:33 Patient Tobacco Use Status Former Tobacco user 07/29/24 09:33 e-Cigarette/Vaping Use Never Used 07/29/24 09:33 Depression Screening Interpretation: Negative Thrive Assessment: Date of Thrive Assessment Date Thrive assessed 07/29/24 07/29/24 09:33 Currently or been in a relationship where the following occur: No concerns reported Const General: no acute distress and alert HENMT Ears: TM's normal bilaterally and EAC's normal Throat: Yes posterior oropharynx normal and Yes tonsils normal (no TP congestion) Neck Neck: Yes supple and No lymphadenopathy Thyroid: Thyroid normal Resp Auscultation: clear to auscultation bilaterally, no rales and no wheezes Cardio Rate: regular rate Rhythm: regular rhythm Heart sounds: no murmurs GI Palpation (GI): Soft to palpation and nontender Auscultation: normal bowel sounds General: Yes no CVA tenderness Back/Spine/Pelvis Back: no CVA tenderness Thoracic/Lumbar Spine: paraspinal muscle tenderness bilaterally in the lower lumbar and lumbar spinal tenderness (mild) Skin Rashes: no rashes Extrem General: Yes no clubbing, cyanosis or edema Results Reviewed Results Reviewed: Laboratory Tests 09/09/23 01/19/25 01/19/25 09:48 09:02 09:07 WBC 6.9 7.2 Hgb 16.0 15.6 Hct 45.7 45.1 Plt Count 201 172 Sodium 142 Potassium 3.5 Creatinine 0.94 Estimated GFR > 60 Fasting Glucose 104 H Calcium 9.0 D Total Bilirubin 1.6 H AST 52 H ALT 88 H Alkaline Phosphatase 47 Triglycerides 93 Cholesterol 131 LDL Cholesterol, Calc 64 HDL Cholesterol 49 Prostate Specific Ag 1.66 25-OH Vitamin D Total 31.4 TSH 4.69 H Free T4 0.80 Ur Specific [place] 1.020 Urine Protein Negative Urine Glucose (UA) Negative Urine Blood Negative Urine Nitrite Negative Ur Leukocyte Esterase Negative Coding Level of Care Code Est Pt Level 4 (47925) Diagnoses Coronary artery disease involving [place] coronary artery of [place] heart without angina pectoris I25.10 Coronary Disease-Associated Artery/Lesion type: [place] artery [place] vs. transplanted heart: [place] heart Associated angina: without angina Premature ventricular contractions I49.3 Pure hypercholesterolemia E78.00 Benign essential hypertension I10 Impaired fasting glucose R73.01 Elevated LFTs R79.89 Hyperbilirubinemia E80.6 Pulmonary nodules R91.8 Bilateral low back pain without sciatica, unspecified chronicity M54.50 Chronicity: unspecified Back pain laterality: bilateral Sciatica presence: without sciatica Benign prostatic hyperplasia, unspecified whether lower urinary tract symptoms present N40.0 Lower urinary tract symptom presence: unspecified whether lower urinary tract symptoms present Erectile dysfunction associated with type 2 diabetes mellitus E11.69; N52.1 Obesity (BMI 30-39.9) E66.9 Assessment & Plan Assessment & Plan (1) Coronary artery disease: Comment: S/P OR, with stenting of RCA and LCx in 05/2005 and stenting of proximal LAD in 03/2011; REstenting of the mid RCA on 05/24/2024 Code(s): I25.10 - Atherosclerotic heart disease of [place] coronary artery without angina pectoris Category: Medical Qualifiers: Coronary Disease-Associated Artery/Lesion type: [place] artery [place] vs. transplanted heart: [place] heart Associated angina: without angina Qualified Code(s): I25.10 - Atherosclerotic heart disease of [place] coronary artery without angina pectoris Plan: Patient underwent REstenting of his RCA on 05/24/2024 when he presented to the ER with exertional dyspnea and chest pressure Coronary angiogram revealed 85% stenosis of the mid RCA requiring stenting; (+) residual 60 to 70% narrowing of OM1 that is unchanged from his catheterization last done in 2010 Continue Aspirin 81 mg QD and Clopidogrel 75 mg QD - patient could not tolerate Brilinta due to side effects and states that he will be stopping Clopidogrel after May 2025 He was referred for cardiac rehab and states that he went there a few times but as his insurance charges him $50 every time he goes there for his session, he went and got a gym membership instead Follow up with [facility] as scheduled (2) Premature ventricular contractions: Code(s): I49.3 - Ventricular premature depolarization Category: Medical Plan: Patient reports that he's had no recurrence of his cardiac symptoms lately Continue Metoprolol ER 200 mg QD (3) Pure hypercholesterolemia: Code(s): E78.00 - Pure hypercholesterolemia, unspecified Category: Medical Plan: Results of his labs done yesterday reviewed and discussed with patient - his cholesterol levels are at or near goal Reinforced low cholesterol diet Continue Atorvastatin 80 mg QD Will recheck his labs and fasting lipids in 6 months for follow up (4) Benign essential hypertension: Code(s): I10 - Essential (primary) hypertension Category: Medical Plan: Reinforced low sodium diet - goal is systolic BP of at least 130 mm or less Patient states that his blood pressure has actually been running much lower than he above recommendation, with his systolic BP going down into the 90s in the morning Continue Metoprolol ER 200 mg QD, Amlodipine 5 mg QD, Lisinopril 40 mg QD and HCTZ 25 mg QD for now but he is concerned that he is on too many BP meds at this time He is advised to try reaching out to his project management manager as soon as he can and let them know of his current issues with his low blood pressure and see what they would recommend Otherwise, if he is unable to get in touch with them and his symptoms continue, would recommend at least cutting his HCTZ dose in half He is advised to continue monitoring his blood pressure closely (5) Impaired fasting glucose: Code(s): R73.01 - Impaired fasting glucose Category: Medical Plan: His FBS was at 104 mg/dl on his recent labs; his HgbA1c was normal at 5.6% when previously checked Reinforced low calorie/low carb diet (6) Elevated LFTs: Code(s): R79.89 - Other specified abnormal findings of blood chemistry Category: Medical Plan: Patient's LFTs are still elevated on his recent labs done yesterday and have increased further from previous Abdominal US done in July 2022 revealed diffusely increased liver echogenicity which is a nonspecific finding but is consistent with hepatosteatosis He is again advised that losing weight should help get his LFTs back to normal Patient also admits to drinking some beer every now and then - have advised him that as he currently is on 80 mg of Atorvastatin, he should avoid drinking any alcohol at this time Will recheck his LFTs and also look into his hepatic fibrosis panel as well in 6 months for further evaluation (7) Hyperbilirubinemia: Code(s): E80.6 - Other disorders of bilirubin metabolism Category: Medical Plan: ? Gilbert's syndrome ? - patient has been asymptomatic so far Abdominal US done in July 2022 revealed diffusely increased liver echogenicity but no other hepatic abnormalities noted. There are suspected parapelvic cysts of the left kidney with fullness of the right-sided collecting system versus parapelvic cysts fullness of the collecting system noted but these likely have no relation to his elevated bilirubin level (8) Pulmonary nodules: Code(s): R91.8 - Other nonspecific abnormal finding of lung field Category: Medical Plan: Chest CT last done on 02/20/2017 showed scattered parenchymal nodules throughout the right lung measuring up to 4 mm Per Fleischner Society 2017 guidelines, no follow up CT was done as risk of malignancy was deemed low with size of nodules < 6 mm Repeat chest x-rays done in May 2021 showed no evidence of aforementioned nodules - no further follow up testing is required if patient has had no other symptoms (9) Low back pain: Code(s): M54.50 - Low back pain, unspecified Category: Medical Qualifiers: Chronicity: unspecified Back pain laterality: bilateral Sciatica presence: without sciatica Qualified Code(s): M54.50 - Low back pain, unspecified Plan: Have advised patient that the areas where he is pointing to as to the location of his pain is too low for his symptoms to have anything to do with the kidneys and are likely from his lumbar spine Will send him for x-rays of the lumbar spine and the SI joints JANESSA for further evaluation (10) Benign prostatic hyperplasia: Code(s): N40.0 - Benign prostatic hyperplasia without lower urinary tract symptoms Category: Medical Qualifiers: Lower urinary tract symptom presence: unspecified whether lower urinary tract symptoms present Qualified Code(s): N40.0 - Benign prostatic hyperplasia without lower urinary tract symptoms Plan: Continue Terazosin 5 mg QD Follow up with urology as scheduled (11) Erectile dysfunction associated with type 2 diabetes mellitus: Code(s): E11.69 - Type 2 diabetes mellitus with other specified complication; N52.1 - Erectile dysfunction due to diseases classified elsewhere Category: Medical Plan: Continue Tadalafil 10 mg QD PRN (12) Obesity (BMI 30-39.9): Code(s): E66.9 - Obesity, unspecified Category: Medical Plan: Reinforced diet/exercise as tolerated/lose weight Plan Follow up in 6 months Orders: Orders XR lumbar spine 2-3V Today M54.50 - Low back pain, unspecified Complete Blood Count Auto Diff 6 Months D64.9 - Anemia, unspecified Comprehensive [place]. Panel Fast 6 Months E78.00 - Pure hypercholesterolemia, unspecified UA CC w/rflx Micro + Cult 6 Months R30.0 - Dysuria Lipid Panel 6 Months E78.00 - Pure hypercholesterolemia, unspecified TSH reflex Free T4 6 Months E78.00 - Pure hypercholesterolemia, unspecified Vitamin D 25-OH Total 6 Months E55.9 - Vitamin D deficiency, unspecified Liver Fibrosis Pnl 6 Months R79.89 - Other specified abnormal findings of blood chemistry XR sacroiliac joint min 3V Today M54.50 - Low back pain, unspecified
== END 2025-01-20 15:26 | disposition home or self-care (01) ==
LOC: HO.HMCH 14:25
PROVIDERS: PCP Internal Medicine; Visit Provider Internal Medicine
DX: I25.10 Atherosclerotic heart disease of native coronary artery without angina pectoris (principal); E11.69 Type 2 diabetes mellitus with other specified complication; E66.9 Obesity, unspecified; Z68.34 Body mass index [BMI] 34.0-34.9, adult; I49.3 Ventricular premature depolarization; E78.00 Pure hypercholesterolemia, unspecified; I10 Essential (primary) hypertension; R73.01 Impaired fasting glucose; R79.89 Other specified abnormal findings of blood chemistry; E80.6 Other disorders of bilirubin metabolism; R91.8 Other nonspecific abnormal finding of lung field; M54.50 Low back pain, unspecified

== ENCOUNTER 2025-02-09 11:24 | Outpatient (AMB) | payer OTHER, SELFPAY ==
--- NOTE | 2025-02-09 11:37 | A.OFFVIS_ITS ---
Intake Visit Reasons: 4M follow up/ PSA? PVR Intake Note: patient presents today for: 4m follow up/PSA/PVR urology medications: terazosin blood thinners: aspirin, clopidogrel labs done 01/19/25: PSA 1.66 today's PVR: 96mls Wet Press Tender Required: No Accompanied by: Self / Same As Patient Allergies No Known Allergies Allergy (Verified 02/09/25 14:30) Medication List - Last Reconciled 02/09/25 by ALOK Hall- amlodipine 5 mg PO DAILY 90 days aspirin 81 mg PO DAILY 90 days atorvastatin 80 mg PO DAILY 90 days clopidogrel 75 mg PO DAILY hydrochlorothiazide 25 mg PO DAILY 90 days lisinopril 40 mg PO DAILY 90 days metoprolol succinate ER 200 mg PO DAILY 90 days terazosin 5 mg PO BEDTIME 90 days triamcinolone acetonide 0.5% 1 appl topical BID PRN HPI Comments Details: Beata Brown is a pleasant 59-year-old male patient of Dr. Garrett. He has a past medical history of obesity, allergic rhinitis, ED, hemorrhoids, BPH, pulmonary nodules, trigger finger, hypercholesteremia, hypertension, coronary artery disease status post HI with stenting of RCA and LCx. He presents to the office today for follow-up of his BPH and ED. In discussion with the patient today reports to be doing and feeling well. He reports compliance with terazosin as prescribed. He reports improvement in lower urinary tract symptoms he had been experiencing. He has previously trialed alfuzosin as well as Flomax and did not find these helpful. He does however continue to report lower urinary tract symptoms however find the manageable with terazosin. He discusses his 's recent diagnosis of breast cancer and has undergone a recent masectomy. We did discuss potential causes of lower urinary tract symptoms patient is experiencing we also discussed further treatment options such as in office cystoscopy and or urodynamics for further assessment evaluation. Previous workup has included CT urogram 11/01 noting benign bilateral parapelvic renal cysts which account for the findings seen on the recent ultrasound. These require no additional imaging or follow-up. There is no hydronephrosis. Incidental note made of mild BPH and colonic diverticulosis. He otherwise denies incontinence, hematuria, dysuria, foul smelling urine, flank pain, fever, and or chills. In office urinalysis results reviewed with the patient today. PVR 96mL. PSAs are as noted and trended below: 02/25 1.5, 06/01 1.2, 07/03 1.4, 10/01 1.3, 02/02 1.7 Urine cytology: 10/01 & 12/01 Negative for high-grade urothelial carcinoma. [facility] Medical History Impaired fasting glucose Obesity (BMI 30-39.9) Allergic rhinitis Hemorrhoids Benign prostatic hyperplasia Pulmonary nodules Pure hypercholesterolemia Benign essential hypertension Premature ventricular contractions Hypertension Hyperlipidemia Coronary artery disease Surgical History History of coronary artery stent placement Family History Father Lung cancer Mother Hypertension Social History Housing: House Alcohol intake: current Alcohol intake frequency: a few times a week Alcohol type: beer Patient Tobacco Use Status: Former Tobacco user e-Cigarette/Vaping Use: Never Used Second Hand Smoke Exposure: Yes service: No Current occupational status: employed Cognitive needs: No Hearing needs: No Vision needs: Yes Review of Systems Const Reports no additional complaints Eyes Reports no additional complaints ENT Reports no additional complaints Card Reports as per [facility] Resp Reports as per [facility] GI Reports as per [facility] Reports as per [facility] Musc Reports as per HPI Neuro Reports no additional complaints Psych Reports no additional complaints Endo Reports as per [facility] Neftaly/Lymph Reports no additional complaints Aller/Immun Reports as per [facility] Physical Exam Const General: cooperative, healthy appearing, comfortable, no acute distress, well developed, alert and awake Nutritional Appearance: overweight Orientation/consciousness: patient oriented x3 Limitations: no limitations HEENT Head: Yes normal to inspection, Yes normocephalic and Yes atraumatic Ears: hearing grossly normal bilaterally Eyes General: appearance normal, both eyes and all related structures Neck Neck: Yes normal visual inspection Chest Chest palpation & inspection: normal inspection of the chest Resp Effort & Inspection: normal respiratory effort and able to speak in complete sentences Cardio Rate: regular rate General: Yes no CVA tenderness Back/Spine/Pelvis Back: no CVA tenderness Cervical Spine: normal cervical lordosis Neuro General: patient oriented x3 Psych Appearance: grossly normal and well kempt Mental Status: mental status grossly normal Speech and movement: Normal speech and movement present Affect: normal affect Attitude: cooperative Thought process: Normal thought process present Thought content: Normal thought content present Insight: Fair insight present (Psych) Judgement: Fair judgement present (Psych) Office Procedures Post Void Residual Post Residual Void Post Void Residual (PVR): [id number] Void Residual by ultrasound Results AMB Urinalysis, Automated UA Leukoctes 0 Anatoliy/uL Last Edit by MELLISA Rolle on 02/09/25 11:54 UA Nitrite Last Edit by MELLISA Rolle on 02/09/25 11:54 UA Urobilinogen 0.2 mg/dL Last Edit by MELLISA Rolle on 02/09/25 11:5 4 UA Protein 15 mg/dL Last Edit by MELLISA Rolle on 02/09/25 11:54 UA pH 5.5 Last Edit by MELLISA Rolle on 02/09/25 11:54 UA Blood 0 Daniel/uL Last Edit by MELLISA Rolle on 02/09/25 11:54 UA Specific [place] 1.025 Last Edit by MELLISA Rolle on 02/09/25 11: 54 UA Ketone Last Edit by MELLISA Rolle on 02/09/25 11:54 UA Bilirubin 1 mg/dL Last Edit by MELLISA Rolle on 02/09/25 11:54 UA Glucose 0 mg/dL Last Edit by MELLISA Rolel on 02/09/25 11:54 Results Reviewed Results Reviewed: Laboratory Last Values Urine pH (Auto) 5.5 02/09/25 11:54 Specific [place] (Auto) 1.025 02/09/25 11:54 Urine Protein (Auto) 15 mg/dL 02/09/25 11:54 Glucose (UA)(Auto) 0 mg/dL 02/09/25 11:54 Urine Blood (Auto) 0 Daniel/uL 02/09/25 11:54 Urine Bilirubin (Auto) 1 mg/dL 02/09/25 11:54 Urine Urobilinogen (Auto) 0.2 mg/dL 02/09/25 11:54 Leukocyte Esterase (Auto) 0 Anatoliy/uL 02/09/25 11:54 Assessment & Plan Assessment & Plan (1) Benign prostatic hyperplasia: Code(s): N40.0 - Benign prostatic hyperplasia without lower urinary tract symptoms Category: Medical Qualifiers: Lower urinary tract symptom presence: unspecified whether lower urinary tract symptoms present Qualified Code(s): N40.0 - Benign prostatic hyperplasia without lower urinary tract symptoms (2) BPH with obstruction/lower urinary tract symptoms: Code(s): N40.1 - Benign prostatic hyperplasia with lower urinary tract symptoms; N13.8 - Other obstructive and reflux uropathy Category: Medical (3) Nocturia: Code(s): R35.1 - Nocturia Category: Medical (4) Erectile dysfunction associated with type 2 diabetes mellitus: Code(s): E11.69 - Type 2 diabetes mellitus with other specified complication; N52.1 - Erectile dysfunction due to diseases classified elsewhere Category: Medical Plan In office urinalysis results reviewed with the patient today; as noted above. PVR 96 mL. Continue terazosin. We did discussed further treatment options and risks and benefits of these treatment options. Patient would like to continue with current management. Recent PSA results reviewed with the patient today; as noted above. Follow-up in 1 year with PSA and PVR; or sooner with any issues, concerns, and or questions. Orders: Orders AMB Post Void Residual by ultrasound Today N13.8 - Other obstructive and reflux uropathy, N40.1 - Benign prostatic hyperplasia with lower urinary tract symptoms AMB Urinalysis Automated Today Z13.9 - Encounter for screening, unspecified Prostate Specific Antigen 1 Year E11.69 - Type 2 diabetes mellitus with other specified complication, N13.8 - Other obstructive and reflux uropathy, N40.0 - Benign prostatic hyperplasia without lower urinary tract symptoms, N40.1 - Benign prostatic hyperplasia with lower urinary tract symptoms, N52.1 - Erectile dysfunction due to diseases classified elsewhere, R35.1 - Nocturia Patient Instructions: The patient had an opportunity to ask questions regarding the treatment plan. All questions were answered. Physical exam, labs, and imaging were discussed and reviewed in detail. As well as risks, benefits, and discussion of treatment choices. No major barriers to understanding were identified. The patient expressed understanding and agreement with the above treatment plan. The patient was made aware they should contact our office by phone for worsening of their current condition, the appearance of new symptoms, or with any questions or concerns. Compliance is encouraged with any medications and follow up testing that is ordered. It is a privilege to be allowed the opportunity to participate in? your urological care.? Again, if you have any questions or concerns If you have any questions or concerns please do not hesitate to contact me. The office is [phone]. This note is constructed using voice recognition software. 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 Yours sincerely, BILL Hall Coding Level of Care Code Est Pt Level 3 (35307) Complex EM visit Add On G2211 Diagnoses Benign prostatic hyperplasia, unspecified whether lower urinary tract symptoms present N40.0 Lower urinary tract symptom presence: unspecified whether lower urinary tract symptoms present BPH with obstruction/lower urinary tract symptoms N40.1; N13.8 Nocturia R35.1 Erectile dysfunction associated with type 2 diabetes mellitus E11.69; N52.1 CPT Codes Post Residual Void - PVR CPT Code: 23213-Wfrp Void Residual by ultrasound ([id number])
== END 2025-02-09 12:25 | disposition home or self-care (01) ==
LOC: HO.HUSH 11:25
PROVIDERS: PCP Internal Medicine; Visit Provider Nurse Practitioner Family
DX: N40.0 Benign prostatic hyperplasia without lower urinary tract symptoms (principal); N40.1 Benign prostatic hyperplasia with lower urinary tract symptoms; N13.8 Other obstructive and reflux uropathy; R35.1 Nocturia; E11.69 Type 2 diabetes mellitus with other specified complication; N52.1 Erectile dysfunction due to diseases classified elsewhere; Z13.9 Encounter for screening, unspecified
CPT/HCPCS: 99213

== ENCOUNTER → 2025-02-09 11:24 | Outpatient (BNVA) | payer OTHER, SELFPAY | PROVIDERS: PCP Internal Medicine; Visit Provider Nurse Practitioner Family | DX: N40.0 Benign prostatic hyperplasia without lower urinary tract symptoms (principal) | CPT/HCPCS: 51798; 81003 ==